=== PATIENT | female | born 1970 | race Caucasian/White ===

== ENCOUNTER 2019-01-02 11:04 | Emergency (ER) | payer OTHER ==
[2019-01-02] MEDS ORDERED: ASPIRIN 81 MG PO STA (12:00)
[2019-01-02] MEDS ORDERED: SODIUM CHLORIDE 0.9% 500 ML 500 ML IV STA (12:00)
[2019-01-02 12:18] LABS: Basophils # (A) 0.1 k/uL (0-0.2); Basophils % (A) 1 %; Eosinophils # (A) 0.1 k/uL (0-0.7); Eosinophils % (A) 1 %; HCT 40.8 % (34.0-46.0); Lymphocytes # (A) 1.5 k/uL (1.0-4.8); Lymphocytes % (A) 16 %; MCH 29.9 pg (25.0-35.0); MCHC 34.4 g/dL (31.0-37.0); Mean Platelet Volume 7.8; Monocytes # (A) 0.6 k/uL (0-1.0); Monocytes % (A) 6 %; Neutrophils # (A) 7.1 k/uL (1.3-7.7); Neutrophils % (A) 74 %; Platelet Count 325 k/uL (150-450); RBC 4.69 m/uL (3.80-5.40); RDW 14.5 % (11.5-15.5); WBC 9.6 k/uL (3.8-10.6)
--- NOTE | 2019-01-02 12:22 | ED ---
General Adult HPI - General Chief complaint: Chest Pain Stated complaint: chest pain, palpitations Time Seen by Provider: 01/02/19 11:16 Source: patient Mode of arrival: ambulatory Limitations: no limitations - History of Present Illness Initial comments: Dictation was produced using [employer] dictation software. please excuse any grammatical, word or spelling errors. Chief Complaint: 48-year-old female with past medical history of fibromyalgia, hypertension and osteoarthritis presents with chest pressure and tachycardia. History of Present Illness: Is a 48-year-old female she presents today with chest pain and tachycardia. Patient reports that her chest pain is crushing pressure-like sensation over her substernal area. Patient is also had episodes of flushing started last night and this morning. She did complain of some diaphoresis. Patient has any history of cardiac disease. Denies any radiation of symptoms to her jaw or shoulders. Patient takes metoprolol for tachycardia. She takes 35 mg twice a day. Patient has history of compartment syndrome and deep venous thrombosis. She feels much improved now. She states her symptoms are episodic. The ROS documented in this emergency department record has been reviewed and confirmed by me. Those systems with pertinent positive or negative responses loera ve been documented in the HPI. All other systems are other negative and/or noncontributory. PHYSICAL EXAM: General Impression: Alert and oriented x3, not in acute distress HEENT: Normocephalic atraumatic, extra-ocular movements intact, pupils equal and reactive to light bilaterally, mucous membranes moist. Cardiovascular: Tachycardic Chest: Lungs clear to auscultation bilaterally, no rhonchi, no wheeze, no rales Abdomen: Bowel sounds present, abdomen soft, non-tender, non-distended, no organomegaly Musculoskeletal: Pulses present and equal in all extremities, no peripheral edema Motor: no focal deficits noted Neurological: CN II-XII grossly intact, no focal motor or sensory deficits noted Skin: Intact with no visualized rashes Psych: Normal affect and mood ED course: 48-year-old female presents with a chief complaint of tachycardia and chest pain. Vital signs upon arrival shows heart of 129, so vital signs within acceptable limits. Patient's well-appearing at this time. EKG does not show any signs of ischemia or infarction. She takes metoprolol for hypertension.Lavatory evaluation obtained. CBC, coag panel, d-dimer is negative. Metabolic panel is unremarkable. O2 sat troponins negative. Urinalysis is positive for 6 white blood cells. Patient not have any urinary symptoms at this time. Checks x-ray is unremarkable. Patient was observed in emergency department for several hours. She did not have any cardiac care unit nurse events. She is an Anderson without any complications. Repeat vitals shows stable findings. Patient's heart score is low. I believe given patient's chest pain symptoms she can be discharged with outpatient workup for chest pain. Return parameters discussed. Patient understandable agreeable to disposition. Chelsea return to emergency Department with worsening chest pain, dyspnea and palpitations. she does have established care with a crusher screen repairer at the [facility]. EKG interpretation: Ventricular rate 112, sinus tachycardia,. Interval 120, care is 84, QTC 472. No PA prolongation, no QTC prolongation, no ST or T-wave changes noted.. Overall, this EKG is unremarkable - Related Data Home Medications Medication Instructions Recorded Confirmed Calcium Carbonate [Calcium] 600 mg PO DAILY 01/02/19 01/02/19 Cholecalciferol [Vitamin D3 (25 1,000 unit PO DAILY 01/02/19 01/02/19 Mcg = 1000 Iu)] DULoxetine HCL [Cymbalta] 30 mg PO DAILY 01/02/19 01/02/19 Magnesium 200 mg PO DAILY 01/02/19 01/02/19 Metoprolol Tartrate 25 mg PO BID 01/02/19 01/02/19 Multivitamins, Thera [Multivitamin 1 tab PO DAILY 01/02/19 01/02/19 (formulary)] Omeprazole [PriLOSEC] 20 mg PO BID 01/02/19 01/02/19 Allergies Allergy/AdvReac Type Severity Reaction Status Date / Time No Known Allergies Allergy Verified 01/02/19 12:12 Review of Systems ROS Statement: Those systems with pertinent positive or pertinent negative responses have been documented in the HPI. ROS Other: All systems not noted in ROS Statement are negative. Past Medical History Past Medical History: Hypertension, Osteoarthritis (OA) Additional Past Medical History / Comment(s): fibromyalgia History of Any Multi-Drug Resistant Organisms: None Reported Past Surgical History: Appendectomy, Section, Cholecystectomy, Heart Catheterization, Hysterectomy Additional Past Surgical History / Comment(s): sinus, 4 hand surgeries, tummy tuck, Past Psychological History: No Psychological Hx Reported Smoking Status: Former smoker Past Alcohol Use History: Occasional Past Drug Use History: None Reported General Exam Limitations: no limitations Course Vital Signs 01/02/19 01/02/19 01/02/19 11:09 12:37 15:00 Temperature 98 F 98.6 F Pulse Rate 129 H 82 94 Respiratory 18 18 18 Rate Blood Pressure 147/102 118/89 139/97 O2 Sat by Pulse 98 97 100 Oximetry Medical Decision Making - Lab Data Result diagrams: 01/02/19 11:31 01/02/19 11:31 Lab Results 01/02/19 01/02/19 01/02/19 Range/Units 11:31 11:31 11:31 WBC 9.6 (3.8-10.6) k/uL RBC 4.69 (3.80-5.40) m/uL Hgb 14.0 (11.4-16.0) gm/dL Hct 40.8 (34.0-46.0) % MCV 87.0 (80.0-100.0) fL MCH 29.9 (25.0-35.0) pg MCHC 34.4 (31.0-37.0) g/dL RDW 14.5 (11.5-15.5) % Plt Count 325 (150-450) k/uL Neutrophils % 74 % Lymphocytes % 16 % Monocytes % 6 % Eosinophils % 1 % Basophils % 1 % Neutrophils # 7.1 (1.3-7.7) k/uL Lymphocytes # 1.5 (1.0-4.8) k/uL Monocytes # 0.6 (0-1.0) k/uL Eosinophils # 0.1 (0-0.7) k/uL Basophils # 0.1 (0-0.2) k/uL PT 9.6 (9.0-12.0) sec INR 0.9 (<1.2) APTT 26.2 (22.0-30.0) sec D-Dimer <0.17 (<0.60) mg/L FEU Sodium 140 (137-145) mmol/L Potassium 4.4 (3.5-5.1) mmol/L Chloride 104 (98-107) mmol/L Carbon Dioxide 23 (22-30) mmol/L Anion Gap 13 mmol/L BUN 21 H (7-17) mg/dL Creatinine 0.78 (0.52-1.04) mg/dL Est GFR (CKD-EPI)AfAm >90 (>60 ml/min/1.73 sqM) Est GFR (CKD-EPI)NonAf >90 (>60 ml/min/1.73 sqM) Glucose 105 H (74-99) mg/dL Calcium 9.7 (8.4-10.2) mg/dL Magnesium 2.0 (1.6-2.3) mg/dL Total Bilirubin 0.7 (0.2-1.3) mg/dL AST 33 (14-36) U/L ALT 31 (9-52) U/L Alkaline Phosphatase 138 H (38-126) U/L Troponin I (0.000-0.034) ng/mL NT-Pro-B Natriuret Pep pg/mL Total Protein 7.8 (6.3-8.2) g/dL Albumin 4.8 (3.5-5.0) g/dL Lipase 162 (23-300) U/L Urine Color Urine Appearance (Clear) Urine pH (5.0-8.0) Ur Specific [place] (1.001-1.035) Urine Protein (Negative) Urine Glucose (UA) (Negative) Urine Ketones (Negative) Urine Blood (Negative) Urine Nitrite (Negative) Urine Bilirubin (Negative) Urine Urobilinogen (<2.0) mg/dL Ur Leukocyte Esterase (Negative) Urine RBC (0-5) /hpf Urine WBC (0-5) /hpf Ur Squamous Epith Cells (0-4) /hpf Amorphous Sediment (None) /hpf Urine Bacteria (None) /hpf Urine Mucus (None) /hpf 01/02/19 01/02/19 01/02/19 Range/Units 11:31 11:31 13:15 WBC (3.8-10.6) k/uL RBC (3.80-5.40) m/uL Hgb (11.4-16.0) gm/dL Hct (34.0-46.0) % MCV (80.0-100.0) fL MCH (25.0-35.0) pg MCHC (31.0-37.0) g/dL RDW (11.5-15.5) % Plt Count (150-450) k/uL Neutrophils % % Lymphocytes % % Monocytes % % Eosinophils % % Basophils % % Neutrophils # (1.3-7.7) k/uL Lymphocytes # (1.0-4.8) k/uL Monocytes # (0-1.0) k/uL Eosinophils # (0-0.7) k/uL Basophils # (0-0.2) k/uL PT (9.0-12.0) sec INR (<1.2) APTT (22.0-30.0) sec D-Dimer (<0.60) mg/L FEU Sodium (137-145) mmol/L Potassium (3.5-5.1) mmol/L Chloride (98-107) mmol/L Carbon Dioxide (22-30) mmol/L Anion Gap mmol/L BUN (7-17) mg/dL Creatinine (0.52-1.04) mg/dL Est GFR (CKD-EPI)AfAm (>60 ml/min/1.73 sqM) Est GFR (CKD-EPI)NonAf (>60 ml/min/1.73 sqM) Glucose (74-99) mg/dL Calcium (8.4-10.2) mg/dL Magnesium (1.6-2.3) mg/dL Total Bilirubin (0.2-1.3) mg/dL AST (14-36) U/L ALT (9-52) U/L Alkaline Phosphatase (38-126) U/L Troponin I <0.012 (0.000-0.034) ng/mL NT-Pro-B Natriuret Pep 123 pg/mL Total Protein (6.3-8.2) g/dL Albumin (3.5-5.0) g/dL Lipase (23-300) U/L Urine Color Yellow Urine Appearance Cloudy H (Clear) Urine pH 5.5 (5.0-8.0) Ur Specific [place] 1.019 (1.001-1.035) Urine Protein Trace H (Negative) Urine Glucose (UA) Negative (Negative) Urine Ketones Negative (Negative) Urine Blood Negative (Negative) Urine Nitrite Negative (Negative) Urine Bilirubin Negative (Negative) Urine Urobilinogen <2.0 (<2.0) mg/dL Ur Leukocyte Esterase Trace H (Negative) Urine RBC 1 (0-5) /hpf Urine WBC 6 H (0-5) /hpf Ur Squamous Epith Cells 1 (0-4) /hpf Amorphous Sediment Rare H (None) /hpf Urine Bacteria Occasional H (None) /hpf Urine Mucus Rare H (None) /hpf 01/02/19 Range/Units 15:08 WBC (3.8-10.6) k/uL RBC (3.80-5.40) m/uL Hgb (11.4-16.0) gm/dL Hct (34.0-46.0) % MCV (80.0-100.0) fL MCH (25.0-35.0) pg MCHC (31.0-37.0) g/dL RDW (11.5-15.5) % Plt Count (150-450) k/uL Neutrophils % % Lymphocytes % % Monocytes % % Eosinophils % % Basophils % % Neutrophils # (1.3-7.7) k/uL Lymphocytes # (1.0-4.8) k/uL Monocytes # (0-1.0) k/uL Eosinophils # (0-0.7) k/uL Basophils # (0-0.2) k/uL PT (9.0-12.0) sec INR (<1.2) APTT (22.0-30.0) sec D-Dimer (<0.60) mg/L FEU Sodium (137-145) mmol/L Potassium (3.5-5.1) mmol/L Chloride (98-107) mmol/L Carbon Dioxide (22-30) mmol/L Anion Gap mmol/L BUN (7-17) mg/dL Creatinine (0.52-1.04) mg/dL Est GFR (CKD-EPI)AfAm (>60 ml/min/1.73 sqM) Est GFR (CKD-EPI)NonAf (>60 ml/min/1.73 sqM) Glucose (74-99) mg/dL Calcium (8.4-10.2) mg/dL Magnesium (1.6-2.3) mg/dL Total Bilirubin (0.2-1.3) mg/dL AST (14-36) U/L ALT (9-52) U/L Alkaline Phosphatase (38-126) U/L Troponin I <0.012 (0.000-0.034) ng/mL NT-Pro-B Natriuret Pep pg/mL Total Protein (6.3-8.2) g/dL Albumin (3.5-5.0) g/dL Lipase (23-300) U/L Urine Color Urine Appearance (Clear) Urine pH (5.0-8.0) Ur Specific [place] (1.001-1.035) Urine Protein (Negative) Urine Glucose (UA) (Negative) Urine Ketones (Negative) Urine Blood (Negative) Urine Nitrite (Negative) Urine Bilirubin (Negative) Urine Urobilinogen (<2.0) mg/dL Ur Leukocyte Esterase (Negative) Urine RBC (0-5) /hpf Urine WBC (0-5) /hpf Ur Squamous Epith Cells (0-4) /hpf Amorphous Sediment (None) /hpf Urine Bacteria (None) /hpf Urine Mucus (None) /hpf Disposition Clinical Impression: Chest pain Disposition: HOME SELF-CARE Condition: Good Instructions (If sedation given, give patient instructions): Chest Pain (ED) Is patient prescribed a controlled substance at d/c from ED?: No Referrals: Gonzalez Johnson DO [Primary Care Provider] - 1-2 days Time of Disposition: 16:10
[2019-01-02 12:31] LABS: INR 0.9 (<1.2); Partial Thromboplastin Time 26.2 sec (22.0-30.0); Prothrombin Time 9.6 sec (9.0-12.0)
[2019-01-02 12:32] LABS: D-Dimer <0.17 mg/L FEU (<0.60)
[2019-01-02 12:33] LABS: ALT 31 U/L (9-52); AST 33 U/L (14-36); African American GFR (CKD) >90 (>60 ml/min/1.73 sqM); Albumin 4.8 g/dL (3.5-5.0); Alkaline Phosphatase 138 U/L (38-126); Anion Gap 13 mmol/L; Blood Urea Nitrogen 21 mg/dL (7-17); Calcium 9.7 mg/dL (8.4-10.2); Carbon Dioxide 23 mmol/L (22-30); Chloride 104 mmol/L (98-107); Glucose 105 mg/dL (74-99); Potassium 4.4 mmol/L (3.5-5.1); Sodium 140 mmol/L (137-145); Total Bilirubin 0.7 mg/dL (0.2-1.3); Total Protein 7.8 g/dL (6.3-8.2)
--- NOTE | 2019-01-02 12:35 | XR ---
EXAMINATION TYPE: XR chest 2V DATE OF EXAM ORDERED: 01/02/2019 HISTORY: Chest Pain. REFERENCE: None. FINDINGS: The lungs are clear. Pleural spaces are clear. Heart size is normal. IMPRESSION: NORMAL CHEST.
[2019-01-02 13:29] LABS: Amorphous Sediment,Urine Rare /hpf; Appearance,Urine Cloudy (Clear); Bacteria,Urine Occasional /hpf; Bilirubin,Urine Negative (Negative); Blood,Urine Negative (Negative); Color,Urine Yellow; Glucose,Urine (UA) Negative (Negative); Ketones,Urine Negative (Negative); Leukocyte Esterase,Urine Trace (Negative); Mucus,Urine Rare /hpf; Nitrite,Urine Negative (Negative); PH, Urine 5.5 (5.0-8.0); Protein,Urine Trace (Negative); RBC,Urine 1 /hpf (0-5); Specific Gravity,Urine 1.019 (1.001-1.035); Squamous Epithelial Cell,Urine 1 /hpf (0-4); Urobilinogen,Urine <2.0 mg/dL (<2.0)
[2019-01-02 15:01] VITALS: TEMP 98.6
[2019-01-02 16:32] VITALS: BP 126/83; PULSE 90; RESP 16
== END 2019-01-02 16:32 | disposition home or self-care (01) ==
LOC: EC 11:04
DX: R07.89 Other chest pain (principal); R00.0 Tachycardia, unspecified; R00.2 Palpitations; I10 Essential (primary) hypertension; Z79.899 Other long term (current) drug therapy; Z87.891 Personal history of nicotine dependence; Z95.5 Presence of coronary angioplasty implant and graft; Z86.718 Personal history of other venous thrombosis and embolism
CPT/HCPCS: 36415; 71046; 80053; 81001; 83690; 83735; 83880; 84484; 85025; 85379; 85610; 85730; 93005; 99285

== ENCOUNTER 2019-11-02 13:33 | Emergency (ER) | payer OTHER ==
[2019-11-02 13:39] VITALS: TEMP 99
[2019-11-02] MEDS ORDERED: SODIUM CHLORIDE 0.9% 1,000 ML IV STA (14:00)
[2019-11-02] MEDS ORDERED: KETOROLAC 30 MG/ML 1 ML VIAL IVP STA (14:00)
[2019-11-02] MEDS ORDERED: diphenhydrAMINE 50 MG/ML 1 ML VIAL IVP STA (14:00)
[2019-11-02] MEDS ORDERED: METOCLOPRAMIDE 5 MG/ML 2 ML VIAL IVP STA (14:00)
--- NOTE | 2019-11-02 14:51 | CT ---
EXAMINATION TYPE: CT brain wo con DATE OF EXAM: 11/02/2019 HISTORY: Headache CT DLP: 1099.4 mGycm. Automated Exposure Control for Dose Reduction was Utilized. TECHNIQUE: CT scan of the head is performed without contrast. COMPARISON: None. FINDINGS: There is no acute intracranial hemorrhage, midline shift, or mass effect identified. Brain parenchyma appears normal. The ventricles, sulci, and cisterns are normal in size and configuration. No extra-axial fluid collection. Bones and extracranial soft tissues are intact. The globes are gross ly symmetric. There is mucosal thickening of the right maxillary sinus and paranasal sinuses postsurg ical changes. Mastoid air cells are clear. IMPRESSION: No acute intracranial hemorrhage, midline shift, or mass effect.
[2019-11-02 15:14] VITALS: BP 118/84; RESP 16
--- NOTE | 2019-11-02 15:39 | ED ---
Headache HPI - General Chief Complaint: Headache Stated Complaint: Headache Time Seen by Provider: 11/02/19 13:44 Mode of arrival: ambulatory Limitations: no limitations - History of Present Illness Initial Comments: Patient is a 49-year-old female, with history of migraines, presenting to emergency Department with complaints of a migraine 3 days. She also admits to associated nausea and vomiting for the past 3 days as well. Patient states she does see a neurologist and can usually keep her migraines at bay. Patient states this migraine seemed to start very suddenly and seems worse than normal. Patient states she has tried her regular migraine medicines without relief. She is also tried going to the chiropractor as well as acupuncture. She states this headache even woke her up last night. Patient states she did take some Benadryl, Imitrex, Zofran approximate 4 hours prior to arrival. She states she has not been able to eat very much the last 3 days secondary to this headache. She denies any falls or trauma. She denies any new medications. She denies any blurry vision. She does admit to being light sensitive. She denies any recent fever, chills, neck pain. She has no further complaints at this time. Upon arrival to the ER, her vital signs are stable. - Related Data Home Medications Medication Instructions Recorded Confirmed Calcium Carbonate [Calcium] 600 mg PO DAILY 01/02/19 01/02/19 Cholecalciferol [Vitamin D3 (25 1,000 unit PO DAILY 01/02/19 01/02/19 Mcg = 1000 Iu)] DULoxetine HCL [Cymbalta] 30 mg PO DAILY 01/02/19 01/02/19 Magnesium 200 mg PO DAILY 01/02/19 01/02/19 Metoprolol Tartrate 25 mg PO BID 01/02/19 01/02/19 Multivitamins, Thera [Multivitamin 1 tab PO DAILY 01/02/19 01/02/19 (formulary)] Omeprazole [PriLOSEC] 20 mg PO BID 01/02/19 01/02/19 Allergies Allergy/AdvReac Type Severity Reaction Status Date / Time No Known Allergies Allergy Verified 11/02/19 13:39 Review of Systems ROS Statement: Those systems with pertinent positive or pertinent negative responses have been documented in the HPI. ROS Other: All systems not noted in ROS Statement are negative. Past Medical History Past Medical History: Hypertension, Osteoarthritis (OA) Additional Past Medical History / Comment(s): migraines, fibromyalgia History of Any Multi-Drug Resistant Organisms: None Reported Past Surgical History: Appendectomy, Section, Cholecystectomy, Heart Catheterization, Hysterectomy Additional Past Surgical History / Comment(s): sinus, 4 hand surgeries, tummy tuck, Past Psychological History: No Psychological Hx Reported Past Alcohol Use History: Occasional Past Drug Use History: None Reported General Exam - General Exam Comments Initial Comments: GENERAL: Well-appearing, well-nourished and in no acute distress, does appear uncomfortable. HEAD: Atraumatic, normocephalic. EYES: Pupils equal round and reactive to light, extraocular movements intact, sclera anicteric, conjunctiva are normal. ENT: TMs normal, nares patent, oropharynx clear without exudates. Moist mucous membranes. NECK: Normal range of motion, supple without lymphadenopathy or JVD. LUNGS: Breath sounds clear to auscultation bilaterally and equal. No wheezes rales or rhonchi. HEART: Regular rate and rhythm without murmurs, rubs or gallops. ABDOMEN: Soft, nontender, normoactive bowel sounds. No guarding, no rebound. No masses appreciated. : Deferred EXTREMITIES: Normal range of motion, no pitting or edema. No clubbing or cyanosis. Strength is 5 out of 5 upper and lower extremities bilaterally, sensation is also equal and bilateral. NEUROLOGICAL: Cranial nerves II through XII grossly intact. Normal speech, normal gait. PSYCH: Normal mood, normal affect. SKIN: Warm, Dry, normal turgor, no rashes or lesions noted. Limitations: no limitations Course Vital Signs 11/02/19 11/02/19 11/02/19 13:34 15:13 16:18 Temperature 99.0 F Pulse Rate 116 H 95 101 H Respiratory 18 16 16 Rate Blood Pressure 175/106 118/84 O2 Sat by Pulse 98 99 99 Oximetry Medical Decision Making - Medical Decision Making Patient is a 49-year-old female here for a migraine, nausea and vomiting 3 days. She does have history of migraines. This one seems to be worse than normal and lasting longer than normal. There is no falls or trauma. Her exam is unremarkable, no neuro deficits. I did CT the patient given worse than norm al headache, CT shows no acute changes. Patient was given fluids, Reglan, Toradol, Benadryl. She is reporting improvement in her symptoms and is requesting to be discharged. She'll follow up with her neurologist. Return parameters were discussed with the patient she verbalized understanding. Case discussed with Dr. Mendez. Disposition Clinical Impression: Migraine headache, Nausea & vomiting Disposition: HOME SELF-CARE Condition: Stable Instructions (If sedation given, give patient instructions): Acute Headache (ED) Additional Instructions: Please return to the Emergency Department if symptoms worsen or any other concerns. Follow-up with neurologist as needed. Is patient prescribed a controlled substance at d/c from ED?: No Referrals: Jose L Saldana MD [Primary Care Provider] - 1-2 days
[2019-11-02 16:19] VITALS: PULSE 101
== END 2019-11-02 16:19 | disposition home or self-care (01) ==
LOC: EC 13:33
DX: G43.909 Migraine, unspecified, not intractable, without status migrainosus (principal); R11.2 Nausea with vomiting, unspecified; I10 Essential (primary) hypertension; M19.90 Unspecified osteoarthritis, unspecified site; M79.7 Fibromyalgia; Z79.899 Other long term (current) drug therapy
CPT/HCPCS: 99283; 96374; 96375 ×2; 96361; 70450; J1200; J2765; J1885

== ENCOUNTER → 2022-12-04 | Outpatient (CLI) | payer OTHER ==
[2022-12-04 14:17] VITALS: BP 112/76; PULSE 64; RESP 16; TEMP 98.4
--- NOTE | 2022-12-04 14:40 | P.PAINPG ---
PQRS Measure Charge Sheet Comment: HISTORY OF PRESENT ILLNESS: 52 yr old female as a referral from the [facility] presents today w severe and chronic neck pain x 6 mo secondary to cervicogenic headache and occipital neuralgia for evaluation. Pt states pain level is provoked at 9/10 in intensity, constant, localized in the mid to lower cervical spine, sharp in character w shooting pain towards the scalp and the shoulder BL. Pain is provoked by laying supine. Pain is alleviated by medications (Motrin, Aleve, Cymbalta, Tyl, Tramadol), topicals, heat, ice, chiropractic treament semi weekly x 1 yr which she is currently in, repositioning and rest. Oswestry axial pain score at 27. PMH: OA, HTN, OA, Fibromyalgia, Migraine POTTER PSH: Appendectomy, Section, Cholecystectomy, Heart Catheterization, Hysterectomy, Tummy Tuck, Sinus Surgery, Hand Surgery x4 SH: No tobacco use, Occasional ETOH use, No illicit drug use FH: Non contributory All: See list Meds: See list REVIEW OF ORGAN SYSTEMS: CONSTITUTIONAL: No fevers or chills. No recent weight loss. NEUROLOGICAL: + numbness and tingling along the distal extremities. No seizure disorders or headaches. MUSCULOSKELETAL: + pain PSYCHIATRIC: Denies current depression or suicidal thoughts. Physical Examinations : Constitutional : Cooperative , not in acute distress . Neurologic : Cranial nerve II to XII intact. No focal neurological deficits. Psychiatric : alert & oriented x 3. Matching mood & appropriate affect. Judgment & insight intact. Musculoskeletal : Cervical Spine Motor strength in the deltoid and biceps: Normal right side. Normal Left side Motor strength biceps and the wrist extensors: Normal right side . Normal left side Motor strength in the triceps muscle: Normal right side. Normal left side Deep tendon reflexes: Normal at the biceps. Normal at Brachioradialis. Normal at triceps Vertebral body tenderness to deep palpation over C6 Cervical facet loading test: positive bilaterally Spurling test: positive bilaterally over BL C6-C7 Neck distraction test: positive bilaterally Stefani sign: positive bilaterally Lumbar spine Motor strength lower extremities ,thigh and legs 5/5 Right side , 5/5 Left side Deep tendon reflexes : Normal Knee Jerk. Normal Ankle Jerk Vertebral body tenderness over Suarez Test positive Lumbar facet Loading Test: positive Right / positive Left Range of motion of the lumbar spine Flexion 30 degrees, extension 10 degrees Straight Leg Raise test: Left/ Right positive at degree Ermelinda test: positive right / positive left. Severe tenderness over the Sacroiliac joint on the Right / Left sides Gaenslen test: positive bilaterally Seated flexion test: positive bilaterally. Sacral spine : Severe tenderness over the Sacroiliac joint: right side / left side Range of motion: Flexion of the lumbar spine <60 degrees Range of motion: Extension of the lumbar spine <20 degrees Gaenslen's Test positive David's Test positive Ermelinda test: positive right side / le ft side Thigh Thrust Test Sacral Thrust Test Imaging: MRI non contrast of the cervical spine from 10/14/22 reviewed Assessment/ Plan : Cervical DDD Recommendation of SUSANNA C6-C7 #1. May need a series of injections for optimal pain relief. Risks, benefits of procedure discussed and patient verbalized understanding. Admits to aspirin or anti- coagulant use or medical history of diabetes. Protocol for discontinuation/ continuation of medications lora procedure discussed. Minimal anesthesia provided, if clinically indicated, consisting of Versed and Fentanyl. All questions answered. I have spent greater than 30 minutes on patient care today. Dr Rosario was available by phone for the evaluation of this patient. The time was used to review the medical records including relevant urine studies and Prescription history (MAPs), review of the available imaging, evaluation and examination of the patient, coordination of care with the medical staff and if applicable referring physicians, as well as creation of the medical record PQRS Narrative: Smoking Status Former smoker Home Medications: Ambulatory Orders Calcium Carbonate [Calcium] 600 mg PO DAILY 01/02/19 Cholecalciferol [Vitamin D3 (25 Mcg = 1000 Iu)] 1,000 unit PO DAILY 01/02/19 DULoxetine HCL [Cymbalta] 30 mg PO DAILY 01/02/19 Magnesium 200 mg PO DAILY 01/02/19 Metoprolol Tartrate 25 mg PO BID 01/02/19 Multivitamins, Thera [Multivitamin (formulary)] 1 tab PO DAILY 01/02/19 Omeprazole [PriLOSEC] 20 mg PO BID 01/02/19 Controlled Substance Measures - Controlled Substance Measures Is patient prescribed a controlled substance at discharge?: No
== END ==
LOC: PNWHC3 09:03
PROVIDERS: ATTEND Specialist
DX: M50.323 Other cervical disc degeneration at C6-C7 level (principal); M54.51 Vertebrogenic low back pain; Z87.891 Personal history of nicotine dependence; M19.90 Unspecified osteoarthritis, unspecified site; I10 Essential (primary) hypertension; M79.7 Fibromyalgia; G40.909 Epilepsy, unspecified, not intractable, without status epilepticus; Z88.8 Allergy status to other drugs, medicaments and biological substances
CPT/HCPCS: 99211

== ENCOUNTER → 2022-12-17 | Day surgery (SDC) | payer OTHER ==
[~2022-12-17] MED LIST: DEXAMETHASONE SOD PHOSPHATE 10 MG/ML 1 ML VIAL ONE; IOPAMIDOL M200 10 ML VIAL ONE; LACTATED RINGERS 1,000 ML IV SCH
[2022-12-17 12:38] VITALS: RESP 16; TEMP 97.2
--- NOTE | 2022-12-17 12:55 | P.PCN ---
Date of Procedure: 12/17/22 Procedure(s) Performed: . PROCEDURE 1. Cervical epidural steroid injection under fluoroscopic guidance, C6-7 (fluoroscopy images available in the radiology department ) 2. Cervical epidurogram. PREOPERATIVE DIAGNOSIS: 1- Cervical Degenerative Disc Diseases 2-cervical spondylosis with cervical Facet arthropathy without myelopathy.4-cervical spinal stenosis POSTOPERATIVE DIAGNOSIS: : 1- Cervical Degenerative Disc Diseases , 2-cervical spondylosis with cervical Facet arthropathy without myelopathy. 4-cervical spinal stenosis ANESTHESIA: Local anesthesia with lidocaine 1% 3 ml only EBL 0 PROCEDURE INDICATION: The patient with neck pain and radiculitis unresponsive to conservative treatment consents for procedure. PROCEDURE DESCRIPTION / TECHNIQUE: The patient was seen and identified in the preoperative area. Risks, benefits, complications, including but not limited to infections ,bleeding , allergic reactions to the medications ,and not complete pain releife, and alternatives were discussed with the patient, the patient agreed to proceed with the procedure and signed the consent. Patient was taken to the OR and time out was completed. The patient was placed in the prone position on the procedure table. A pillow was placed under the patients chest to increase the cervical interlaminar space. The cervical area was prepped and draped in the usual sterile fashion. Vital signs were closely monitored during the procedure. Using anterior-posterior fluoroscopy, the C6-7 interlaminar space was identified and the skin over this site was marked and then infiltrated with 1% lidocaine subcutaneously. Subsequently, a 20-gauge 3-1/2-inch Tuohy epidural needle was inserted and advanced toward the epidural space by means of the ``hanging-drop technique and guided by AP and lateral fluoroscopy. The correct needle position in the epidural space was verified with the injection of 2 mL of the water soluble contrast dye Isovue-200 and observing an excellent epidurogram with the epidural spread of the dye, after negative aspiration for blood and CSF and in the absence of paresthesias. then, mixture containing 20 mg Dexamethasone and 2 ml of preservative-free normal saline injected and a washout of epidurogram was seen. Needle was withdrawn intact, skin was cleansed, and bandages were applied. Complications= none. Disposition= patient was placed in supine position and transferred to the recovery room area in stable condition and there was no evidence of upper or lower extremity motor or sensory deficit after the procedure patient was discharged from recovery room after discharge criteria met and home discharge instructions was given by the staff and patient will follow with the pain clinic in 2-4 weeks
[2022-12-17 13:09] VITALS: BP 113/76; PULSE 81
--- NOTE | 2022-12-17 13:37 | FL ---
Fluoroscopy History: NECK PAIN PAIN SERVICES. FL TIME 1 SEC DAP [id number]
== END ==
LOC: ORPAIN 12:10
PROVIDERS: ATTEND Specialist
DX: M50.123 Cervical disc disorder at C6-C7 level with radiculopathy (principal); M47.22 Other spondylosis with radiculopathy, cervical region; M48.02 Spinal stenosis, cervical region; Z88.5 Allergy status to narcotic agent; Z79.899 Other long term (current) drug therapy
CPT/HCPCS: 62321; J1100; Q9966

== ENCOUNTER → 2023-01-27 | Outpatient (CLI) | payer OTHER ==
[2023-01-27 13:39] VITALS: BP 109/76; PULSE 76; RESP 15; TEMP 98.2
--- NOTE | 2023-01-27 14:43 | P.PAINPG ---
PQRS Measure Charge Sheet Comment: HISTORY OF PRESENT ILLNESS: 53 yr old female presents today w severe and chronic neck pain x 10 yrs secondary to cervicogenic headache, occipital neuralgia, DDD, spondylosis and facet arthropathy without myelopathy for evaluation s/p SUSANNA C6-C7 #1. Pt states she experienced 50% pain relief x the last 5 wks s/p procedure. Pt states pain level is provoked at 3/10 in intensity, constant, localized in the mid to lower lumbar spine, sharp in character without shooting pain. Pain is provoked by laying supine. Pain is alleviated by medications, topicals, heat, ice, repositioning and rest. Interventional procedures include SUSANNA C6-C7 x1 Medications include Motrin, Aleve, Cymbalta, Tyl, Tramadol REVIEW OF ORGAN SYSTEMS: CONSTITUTIONAL: No fevers or chills. No recent weight loss. NEUROLOGICAL: + numbness and tingling along the distal extremities. No seizure disorders or headaches. MUSCULOSKELETAL: + pain PSYCHIATRIC: Denies current depression or suicidal thoughts. Physical Examinations : Constitutional : Cooperative , not in acute distress . Neurologic : Cranial nerve II to XII intact. No focal neurological deficits. Psychiatric : alert & oriented x 3. Matching mood & appropriate affect. Judgment & insight intact. Musculoskeletal : Cervical Spine Motor strength in the deltoid and biceps: Normal right side. Normal Left side Motor strength biceps and the wrist extensors: Normal right side . Normal left side Motor strength in the triceps muscle: Normal right side. Normal left side Deep tendon reflexes: Normal at the biceps. Normal at Brachioradialis. Normal at triceps Vertebral body tenderness to deep palpation over C6 Cervical facet loading test: positive bilaterally Spurling test: positive bilaterally Neck distraction test: positive bilaterally Stefani sign: positive bilaterally Lumbar spine Motor strength lower extremities ,thigh and legs 5/5 Right side , 5/5 Left side Deep tendon reflexes : Normal Knee Jerk. Normal Ankle Jerk Vertebral body tenderness over Suarez Test positive Lumbar facet Loading Test: positive Right / positive Left Range of motion of the lumbar spine Flexion 30 degrees, extension 10 degrees Straight Leg Raise test: Left/ Right positive at degree Ermelinda test: positive right / positive left. Severe tenderness over the Sacroiliac joint on the Right / Left sides Gaenslen test: positive bilaterally Seated flexion test: positive bilaterally. Sacral spine : Severe tenderness over the Sacroiliac joint: right side / left side Range of motion: Flexion of the lumbar spine <60 degrees Range of motion: Extension of the lumbar spine <20 degrees Gaenslen's Test positive David's Test positive Ermelinda test: positive right side / left side Thigh Thrust Test Sacral Thrust Test Imaging: MRI non contrast of the cervical spine from 10/14/22 reviewed Assessment/ Plan : Cervicogenic POTTER, Occipital Neuralgia, Cervical DDD, Lumbar DDD PT x 6 wks Dx M51.36. Will manage residual cervical pain and may RTC on an as needed basis. All questions answered. I have spent greater than 30 minutes on patient care today. Dr Rosario was available by phone for the evaluation of this patient. The time was used to review the medical records including relevant urine studies and Prescription history (MAPs), review of the available imaging, evaluation and examination of the patient, coordination of care with the medical staff and if applicable referring physicians, as well as creation of the medical record PQRS Narrative: Smoking Status Former smoker Hx Alcohol Use (MH) Yes: Rare Home Medications: Ambulatory Orders Metoprolol Tartrate 25 mg PO BID 01/02/19 Multivitamins, Thera [Multivitamin (formulary)] 1 tab PO DAILY 01/02/19 Atorvastatin Calcium [Lipitor] 20 mg PO DAILY 12/04/22 Cholecalciferol [Vitamin D3 (10 Mcg = 400 Iu)] 50 mcg PO DAILY 12/04/22 DULoxetine HCL [Cymbalta] 60 mg PO DAILY 12/04/22 Diclofenac Sodium Gel [Voltaren Gel] 4 gm TOPICAL BID PRN 12/04/22 Erenumab-Aooe [Aimovig Autoinjector] 140 mg SQ QMONTHLY 12/04/22 Fluticasone Nasal [place] [Flonase Nasal [place]] 2 spray EA NOSTRIL DAILY PRN 12/04/22 Lidocaine 5% Patch [Lidoderm] 1 patch TOPICAL DAILY PRN 12/04/22 Loperamide HCl [Loperamide HCl Oral Susp] 1 tsp PO DAILY PRN 12/04/22 Losartan [Cozaar] 100 mg PO DAILY 12/04/22 Omeprazole [PriLOSEC] 40 mg PO DAILY 12/04/22 Ondansetron Odt [Zofran Odt] 4 mg PO Q12HR PRN 12/04/22 SUMAtriptan succinate 6 mg SQ DIRECTED PRN MDD 12MG 12/04/22 SUMAtriptan succinate [Imitrex] 100 mg PO DIRECTED PRN MDD 200MG 12/04/22 amLODIPine [Norvasc] 5 mg PO DAILY 12/12/22 Controlled Substance Measures - Controlled Substance Measures Is patient prescribed a controlled substance at discharge?: No
== END ==
LOC: PNWHC3 12:46
PROVIDERS: ATTEND Specialist
DX: M50.322 Other cervical disc degeneration at C5-C6 level (principal); M51.36 Other intervertebral disc degeneration, lumbar region; M54.81 Occipital neuralgia; G44.86 Cervicogenic headache; Z87.891 Personal history of nicotine dependence; Z88.8 Allergy status to other drugs, medicaments and biological substances
CPT/HCPCS: 99211

== ENCOUNTER → 2023-07-07 | Outpatient (CLI) | payer OTHER ==
[2023-07-07 12:19] VITALS: BP 137/84; PULSE 75; RESP 16; TEMP 98.4
--- NOTE | 2023-07-07 13:22 | P.PAINPG ---
PQRS Measure Charge Sheet Comment: HISTORY OF PRESENT ILLNESS: A 53 yr old female presents today w severe and chronic neck pain x 10 yrs secondary to cervicogenic headache, occipital neuralgia, DDD, spondylosis and facet arthropathy without myelopathy for evaluation. Pt states pain level is provoked at 6 /10 in intensity, constant, localized in the mid to lower cervical spine, predominantly axial, sharp in character w occasional R shoulder shooting pain. Pain is provoked by laying supine. Pain is alleviated by PT x 6 wks which ended in Jun 2023, chiropractic treatments q3wks since Feb 2023 which she is currently in, massage therapy w acupuncture weekly since May 2023 which she is currently in, medications, topicals, heat, ice, repositioning and rest. Interventional procedures include SUSANNA C6-C7 x1 Medications include Motrin, Aleve, Cymbalta, Tyl, Olar 7.5/325mg, BioFreeze gel REVIEW OF ORGAN SYSTEMS: CONSTITUTIONAL: No fevers or chills. No recent weight loss. NEUROLOGICAL: + numbness and tingling along the distal extremities. No seizure disorders or headaches. MUSCULOSKELETAL: + pain PSYCHIATRIC: Denies current depression or suicidal thoughts. Physical Examinations : Constitutional : Cooperative , not in acute distress . Neurologic : Cranial nerve II to XII intact. No focal neurological deficits. Psychiatric : alert & oriented x 3. Matching mood & appropriate affect. Judgment & insight intact. Musculoskeletal : Cervical Spine Motor strength in the deltoid and biceps: Normal right side. Normal Left side Motor strength biceps and the wrist extensors: Normal right side . Normal left side Motor strength in the triceps muscle: Normal right side. Normal left side Deep tendon reflexes: Normal at the biceps. Normal at Brachioradialis. Normal at triceps Vertebral body tenderness to deep palpation over C6 Cervical facet loading test: positive R C6-C7 Spurling test: positive bilaterally Neck distraction test: positive bilaterally Stefani sign: positive bilaterally Lumbar spine Motor strength lower extremities ,thigh and legs 5/5 Right side , 5/5 Left side Deep tendon reflexes : Normal Knee Jerk. Normal Ankle Jerk Vertebral body tenderness over Suarez Test positive Lumbar facet Loading Test: positive Right / positive Left Range of motion of the lumbar spine Flexion 30 degrees, extension 10 degrees Straight Leg Raise test: Left/ Right positive at degree Ermelinda test: positive right / positive left. Severe tenderness over the Sacroiliac joint on the Right / Left sides Gaenslen test: positive bilaterally Seated flexion test: positive bilaterally. Sacral spine : Severe tenderness over the Sacroiliac joint: right side / left side Range of motion: Flexion of the lumbar spine <60 degrees Range of motion: Extension of the lumbar spine <20 degrees Gaenslen's Test positive David's Test positive Ermelinda test: positive right side / left side Thigh Thrust Test Sacral Thrust Test Imaging: MRI non contrast of the cervical spine from 10/14/22 reviewed Assessment/ Plan : Cervicogenic POTTER, Occipital Neuralgia, Cervical DDD, Lumbar DDD Recommendation of R TFESI C6-C7 #2. May need a series of injections for optimal pain relief. Risks, benefits of procedure discussed and pt verbalized understanding. Protocol for discontinuation/ continuation of medications lora procedure discussed. PT x 6 wks w focus on traction/ decompression M50.30, M51.36. All questions answered. I have spent greater than 30 minutes on patient care today. Dr Rosario was available by phone for the evaluation of this patient. The time was used to review the medical records including relevant urine studies and Prescription history (MAPs), review of the available imaging, evaluation and examination of the patient, coordination of care with the medical staff and if applicable referring physicians, as well as creation of the medical record PQRS Narrative: Smoking Status Former smoker Hx Alcohol Use (MH) Yes: Rare Home Medications: Ambulatory Orders Metoprolol Tartrate 25 mg PO BID 01/02/19 Multivitamins, Thera [Multivitamin (formulary)] 1 tab PO DAILY 01/02/19 Atorvastatin Calcium [Lipitor] 20 mg PO DAILY 12/04/22 Cholecalciferol [Vitamin D3 (10 Mcg = 400 Iu)] 50 mcg PO DAILY 12/04/22 DULoxetine HCL [Cymbalta] 60 mg PO DAILY 12/04/22 Diclofenac Sodium Gel [Voltaren Gel] 4 gm TOPICAL BID PRN 12/04/22 Erenumab-Aooe [Aimovig Autoinjector] 140 mg SQ QMONTHLY 12/04/22 Fluticasone Nasal [place] [Flonase Nasal [place]] 2 spray EA NOSTRIL DAILY PRN 12/04/22 Lidocaine 5% Patch [Lidoderm] 1 patch TOPICAL DAILY PRN 12/04/22 Loperamide HCl [Loperamide HCl Oral Susp] 1 tsp PO DAILY PRN 12/04/22 Losartan [Cozaar] 100 mg PO DAILY 12/04/22 Omeprazole [PriLOSEC] 40 mg PO DAILY 12/04/22 Ondansetron Odt [Zofran Odt] 4 mg PO Q12HR PRN 12/04/22 SUMAtriptan succinate 6 mg SQ DIRECTED PRN MDD 12MG 12/04/22 SUMAtriptan succinate [Imitrex] 100 mg PO DIRECTED PRN MDD 200MG 12/04/22 amLODIPine [Norvasc] 5 mg PO DAILY 12/12/22 Controlled Substance Measures - Controlled Substance Measures Is patient prescribed a controlled substance at discharge?: No
== END ==
LOC: PNWHC3 10:40
PROVIDERS: ATTEND Specialist
DX: M51.36 Other intervertebral disc degeneration, lumbar region (principal); M54.81 Occipital neuralgia; G44.86 Cervicogenic headache; M50.323 Other cervical disc degeneration at C6-C7 level; Z87.891 Personal history of nicotine dependence; Z88.8 Allergy status to other drugs, medicaments and biological substances
CPT/HCPCS: 99211

== ENCOUNTER 2023-07-29 13:09 | Day surgery (SDC) | payer OTHER ==
[2023-07-25 10:04] VITALS: BMI 30.4
[~2023-07-29 13:09] MED LIST changes: -DEXAMETHASONE SOD PHOSPHATE 10 MG/ML 1 ML VIAL ONE; -IOPAMIDOL M200 10 ML VIAL ONE
[2023-07-29 13:52] VITALS: RESP 16; TEMP 97.8
[2023-07-29] MEDS ORDERED: IOPAMIDOL M200 10 ML VIAL ONE (14:23)
[2023-07-29] MEDS ORDERED: DEXAMETHASONE SOD PHOSPHATE 10 MG/ML 1 ML VIAL ONE (14:23)
--- NOTE | 2023-07-29 14:33 | P.PCN ---
Date of Procedure: 07/29/23 Procedure(s) Performed: PREOPERATIVE DIAGNOSIS: 1-Cervical radiculopathy .2-cervical degenerative disc disease.3-nuchal foraminal stenosis.4-cervical spondylosis POSTOPERATIVE DIAGNOSIS: Same as preoperative diagnoses. PROCEDURE 1. Transforaminal epidural steroid injection under fluoroscopic guidance at right C6-7 level. (Fluoroscopy images stored on file in the radiology Department ) ANESTHESIA: Local with 1% lidocaine 3 ml . EBL: Minimal PROCEDURE INDICATION: The patient with severe neck pain and radiculopathy to the upper extremity , the symptoms unresponsive to conservative treatment. PROCEDURE DESCRIPTION / TECHNIQUE: The patient was seen and identified in the preoperative area. Risks, benefits, complications, and alternatives were discussed with the patient. The patient agreed to proceed with the procedure and signed the consent, and vital signs were stable. Patient was taken to the OR and time out was completed. The patient was placed in the lateral position on procedure table( right side up ) . The cervical area was prepped and draped in the usual sterile fashion. Critical pause was taken. Vital signs were closely monitored during the procedure. Using oblique fluoroscopy, the Right C6-7 level was identified, in the lateral view , the skin and deeper tissues just below was localized with 1% lidocaine. Subsequently, a 22-gauge 3.5-inch spinal needle was advanced under a tunneled view fluoroscopic guidance just underneath the foraminotomy of at the right C6-7 Under lateral fluoroscopy, the needle was then advanced to the posterior border of the interforaminal space. After negative aspiration of CSF and blood and with no paresthesias, 1 mL Isovue 200 contrast dye was injected excellent epidurogram , 2 mL of block solution containing 20 mg Dexamethasone PF was injected. Needle was removed. At the end of the procedure, skin was cleansed, and bandages were applied. COMPLICATIONS:none DISPOSITION / PLANS: The patient was placed in a supine position and transferred to the recovery area in a stable condition for observation. There was no evidence of lower extremity motor or sensory deficit after the procedure. Patient was discharged from the recovery room after meeting discharge criteria. Home discharge instructions were given to the patient by the staff. The patient was reexamined prior to discharge.
[2023-07-29 15:12] VITALS: BP 147/99; PULSE 66
--- NOTE | 2023-07-29 15:52 | FL ---
Fluoroscopy History: TRANSFORAMINAL FL time: 8.9 sec DAP: .[id number] Dr. Rosario
== END 2023-07-29 14:50 | disposition home or self-care (01) ==
LOC: ORPAIN 13:09
PROVIDERS: ATTEND Specialist
DX: M47.22 Other spondylosis with radiculopathy, cervical region (principal); M50.123 Cervical disc disorder at C6-C7 level with radiculopathy; M48.02 Spinal stenosis, cervical region
CPT/HCPCS: 64479; J1100; Q9966; 64483

== ENCOUNTER → 2023-08-13 | Outpatient (CLI) | payer OTHER ==
[2023-08-13 10:18] VITALS: BP 107/62; PULSE 92; RESP 15; TEMP 98.7
--- NOTE | 2023-08-13 14:35 | P.PAINPG ---
PQRS Measure Charge Sheet Comment: HISTORY OF PRESENT ILLNESS: A 53 yr old female presents today w severe and chronic neck pain x 10 yrs and LBP > 2 yrs secondary to lumbar DDD, cervicogenic headache, occipital neuralgia, DDD, spondylosis and facet arthropathy without myelopathy for evaluation s/p R TFESI C6-C7 #2. Pt states she experienced 70 % pain relief x 2 wks s/p procedure. Pt states pain level is provoked at 7 /10 in intensity, constant, localized in the lumbar spine, predominantly axial, sharp in character w occasional BLE shooting pain. Pain is provoked by laying supine. Pain is alleviated by PT x 6 wks which ended in Jun 2023, chiropractic treatments biweekly since Feb 2023 (cervical, lumbar) which she is currently in, massage therapy w acupuncture (lumbar) weekly since May 2023 which she is currently in, medications, topicals, heat, ice, repositioning and rest. Oswestry axial score of 15. Interventional procedures include SUSANNA C6-C7 x1m R TFESI C6-C7 x2 (Jul 2023) Medications include Motrin, Aleve, Cymbalta, Tyl, Points 7.5/325mg, BioFreeze gel, THC products REVIEW OF ORGAN SYSTEMS: CONSTITUTIONAL: No fevers or chills. No recent weight loss. NEUROLOGICAL: + numbness and tingling along the distal extremities. No seizure disorders or headaches. MUSCULOSKELETAL: + pain PSYCHIATRIC: Denies current depression or suicidal thoughts. Physical Examinations : Constitutional : Cooperative , not in acute distress . Neurologic : Cranial nerve II to XII intact. No focal neurological deficits. Psychiatric : alert & oriented x 3. Matching mood & appropriate affect. Judgment & insight intact. Musculoskeletal : Cervical Spine Motor strength in the deltoid and biceps: Normal right side. Normal Left side Motor strength biceps and the wrist extensors: Normal right side . Normal left side Motor strength in the triceps muscle: Normal right side. Normal left side Deep tendon reflexes: Normal at the biceps. Normal at Brachioradialis. Normal at triceps Vertebral body tenderness to deep palpation over C6 Cervical facet loading test: positive R C6-C7 Spurling test: positive bilaterally Neck distraction test: positive bilaterally Stefani sign: positive bilaterally Lumbar spine Motor strength lower extremities ,thigh and legs 5/5 Right side , 5/5 Left side Deep tendon reflexes : Normal Knee Jerk. Normal Ankle Jerk Vertebral body tenderness over L4 Suarez Test positive Lumbar facet Loading Test: positive Right / positive Left Range of motion of the lumbar spine Flexion 30 degrees, extension 10 degrees Straight Leg Raise test: Left/ Right positive at < 35 degrees Ermelinda test: positive right / positive left. Severe tenderness over the Sacroiliac joint on the Right / Left sides Gaenslen test: positive bilaterally Seated flexion test: positive bilaterally. Sacral spine : Severe tenderness over the Sacroiliac joint: right side / left side Range of motion: Flexion of the lumbar spine <60 degrees Range of motion: Extension of the lumbar spine <20 degrees Gaenslen's Test positive David's Test positive Ermelinda test: positive right side / left side Thigh Thrust Test Sacral Thrust Test Imaging: MRI non contrast of the cervical spine from 10/14/22 reviewed MRI non contrast of the lumbar spine from 10/14/22 reviewed Assessment/ Plan : Cervicogenic POTTER, Occipital Neuralgia, Cervical DDD, Lumbar DDD Recommendation of SUSANNA L4-L5 #1. May need a series of injections for optimal pain relief. Risk, benefits of procedure discussed and patient verbalized understand ing. All questions answered. I have spent greater than 30 minutes on patient care today. Dr Rosario was available by phone for the evaluation of this patient. The time was used to review the medical records including relevant urine studies and Prescription history (MAPs), review of the available imaging, evaluation and examination of the patient, coordination of care with the medical staff and if applicable referring physicians, as well as creation of the medical record PQRS Narrative: Smoking Status Former smoker Hx Alcohol Use (MH) Yes: Rare Home Medications: Ambulatory Orders Metoprolol Tartrate 25 mg PO BID 01/02/19 DULoxetine HCL [Cymbalta] 60 mg PO BID 12/04/22 Diclofenac Sodium Gel [Voltaren Gel] 4 gm TOPICAL BID PRN 12/04/22 Erenumab-Aooe [Aimovig Autoinjector] 140 mg SQ QMONTHLY 12/04/22 Fluticasone Nasal [place] [Flonase Nasal [place]] 2 spray EA NOSTRIL DAILY PRN 12/04/22 Lidocaine 5% Patch [Lidoderm] 1 patch TOPICAL DAILY PRN 12/04/22 Loperamide HCl [Loperamide HCl Oral Susp] 1 tsp PO DAILY PRN 12/04/22 Losartan [Cozaar] 100 mg PO QAM 12/04/22 Ondansetron Odt [Zofran Odt] 4 mg PO Q12HR PRN 12/04/22 SUMAtriptan succinate 6 mg SQ DIRECTED PRN MDD 12MG 12/04/22 SUMAtriptan succinate [Imitrex] 100 mg PO DIRECTED PRN MDD 200MG 12/04/22 Hcl-Ease 2 tab PO BID 07/18/23 [place]-Stin 1 tab PO TID 07/18/23 Zn-Zymeforte 1 tab PO QAM 07/18/23 Controlled Substance Measures - Controlled Substance Measures Is patient prescribed a controlled substance at discharge?: No
== END ==
LOC: PNWHC3 09:29
PROVIDERS: ATTEND Specialist
DX: M54.81 Occipital neuralgia (principal); G44.86 Cervicogenic headache; M51.36 Other intervertebral disc degeneration, lumbar region; M50.30 Other cervical disc degeneration, unspecified cervical region; Z88.8 Allergy status to other drugs, medicaments and biological substances; Z87.891 Personal history of nicotine dependence
CPT/HCPCS: 99211

== ENCOUNTER → 2023-08-21 | Day surgery (SDC) | payer OTHER ==
[2023-08-19 16:53] VITALS: BMI 31.1
[~2023-08-21] MED LIST changes: +IOPAMIDOL M200 10 ML VIAL ONE; +methylPREDNISolone ACETATE 80 MG/ML 1 ML VIAL ONE
[2023-08-21 09:23] VITALS: TEMP 98
--- NOTE | 2023-08-21 09:33 | P.PCN ---
Date of Procedure: 08/21/23 Procedure(s) Performed: PREOPERATIVE DIAGNOSIS: 1- Lumbar Degenerative Disc Diseases 2-Lumbar spondylosis with Facet arthropathy without myelopathy. POSTOPERATIVE DIAGNOSIS: 1-lumbar degenerative disc disease. 2-lumbar spondylosis with facet arthropathy without myelopathy. PROCEDURE 1. Lumbar epidural steroid injection under fluoroscopic guidance at the L4-5 level. (Fluoroscopy imaging was available in radiology department) 2. Lumbar epidurogram. ANESTHESIA: Lidocaine 1% 3 and then only. EBL: Minimal PROCEDURE INDICATION: The patient with low back pain and radiculitis symptoms unresponsive to conservative treatment. Fluoroscopy was used to optimize visualization of the needle placement and to maximize safety. PROCEDURE DESCRIPTION / TECHNIQUE: The patient was seen and identified in the preoperative area. Risks, benefits, complications including but not limited to infections ,bleeding ,allergic reaction to the medications ,nerve damage and not complete pain releife , and alternatives were discussed with the patient. The patient agreed to proceed with the procedure and signed the consent, and vital signs were stable. Patient was taken to the OR and time out was completed. The patient was placed in the prone position on procedure table and a pillow was placed under the ab domen to reduce lumbar lordosis. The lumbosacral area was prepped and draped in the usual sterile fashion.ere closely monitored during the procedure. Vital signs was monitered during the entire procedure. Using anterior-posterior fluoroscopy, the L4-5 interlaminar space was identified and the skin over this site was marked and then infiltrated with 1% lidocaine subcutaneously. Subsequently, a 20-gauge Tuohy epidural needle was inserted and advanced toward the epidural space using the ``Loss of resistance technique and guided by AP and lateral fluoroscopy. The correct needle position in the epidural space was verified with the injection of 2 mL of the water soluble contrast dye Isovue 200 contrast and observing an excellent epidurogram with the epidural spread of the dye, after negative aspiration for blood and CSF and in the absence of paresthesias. Again after negative aspiration, a 6 ml mixture containing 80 mg of Depo-medrol ( Preservetive Free ), and 2 ml of preservative free Normal Saline, and 2 ml of preservative free lidocaine 1% solution was injected and a washout of epidurogram was seen. Needle was withdrawn intact, skin was cleansed, and bandages were applied. COMPLICATIONS: None DISPOSITION / PLANS: The patient was placed in a supine position and transferred to the recovery area in a stable condition for observation. There was no evidence of lower extremity motor or sensory deficit after the procedure. Patient was discharged from the recovery room after meeting discharge criteria. Home discharge instructions were given to the patient by the staff. The patient was reexamined prior to discharge. The patient will schedule a follow up in the clinic in 2-4 weeks.
--- NOTE | 2023-08-21 10:07 | FL ---
EXAMINATION TYPE: FL guided pain mgmt statistic Intraoperative/procedural fluoroscopic services were provided. Total fluoroscopy time is 1.7 seconds with submitted images to PACS. Please see the operati ve/procedural note for further details. DAP: 0.00-5 0 mGym2
[2023-08-21 10:08] VITALS: BP 117/84; PULSE 68; RESP 16
== END ==
LOC: ORPAIN 08:11
PROVIDERS: ATTEND Specialist
DX: M51.16 Intervertebral disc disorders with radiculopathy, lumbar region (principal); M47.26 Other spondylosis with radiculopathy, lumbar region; Z88.9 Allergy status to unspecified drugs, medicaments and biological substances
CPT/HCPCS: 62323; Q9966; J1010

== ENCOUNTER → 2023-09-10 | Outpatient (CLI) | payer OTHER ==
[2023-09-10 12:34] VITALS: BP 128/74; PULSE 75; RESP 15; TEMP 98.1
--- NOTE | 2023-09-10 13:14 | P.PAINPG ---
PQRS Measure Charge Sheet Comment: HISTORY OF PRESENT ILLNESS: A 53 yr old female presents today w severe and chronic neck pain x 10 yrs and LBP > 2 yrs secondary to lumbar DDD, cervicogenic headache, occipital neuralgia, DDD, spondylosis and facet arthropathy without myelopathy for evaluation s/p SUSANNA L4-L5 #1. Pt states she experienced 20 % pain relief x 3 wks s/p procedure. Pt states pain level is provoked at 6 /10 in intensity, constant, localized in the lumbar spine, predominantly axial, sharp in character w occasional BLE shooting pain. Pain is provoked by laying supine. Pain is alleviated by PT x 6 wks which ended in Jun 2023, chiropractic treatments biweekly since Feb 2023 (cervical, lumbar) which she is currently in, massage therapy w acupuncture (lumbar) weekly since May 2023 which she is currently in, medications, topicals, heat, repositioning and rest. Oswestry axial score of 15. Interventional procedures include SUSANNA C6-C7 x1, R TFESI C6-C7 x2 (Jul 2023), SUSANNA L4-L5 x1 (August 2023) Medications include Motrin, Aleve, Cymbalta, Tyl, [place] 7.5/325mg, BioFreeze gel, THC products REVIEW OF ORGAN SYSTEMS: CONSTITUTIONAL: No fevers or chills. No recent weight loss. NEUROLOGICAL: + numbness and tingling along the distal extremities. No seizure disorders or headaches. MUSCULOSKELETAL: + pain PSYCHIATRIC: Denies current depression or suicidal thoughts. Physical Examinations : Constitutional : Cooperative , not in acute distress . Neurologic : Cranial nerve II to XII intact. No focal neurological deficits. Psychiatric : alert & oriented x 3. Matching mood & appropriate affect. Judgment & insight intact. Musculoskeletal : Cervical Spine Motor strength in the deltoid and biceps: Normal right side. Normal Left side Motor strength biceps and the wrist extensors: Normal right side . Normal left side Motor strength in the triceps muscle: Normal right side. Normal left side Deep tendon reflexes: Normal at the biceps. Normal at Brachioradialis. Normal at triceps Vertebral body tenderness to deep palpation over C6 Cervical facet loading test: positive R C6-C7 Spurling test: positive bilaterally Neck distraction test: positive bilaterally Stefani sign: positive bilaterally Lumbar spine Motor strength lower extremities ,thigh and legs 5/5 Right side , 5/5 Left side Deep tendon reflexes : Normal Knee Jerk. Normal Ankle Jerk Vertebral body tenderness Suarez Test positive Lumbar facet Loading Test: positive Right / positive Left L4-L5, L5-S1 Range of motion of the lumbar spine Flexion 30 degrees, extension 10 degrees Straight Leg Raise test: Left/ Right positive at < 35 degrees Ermelinda test: positive right / positive left. Severe tenderness over the Sacroiliac joint on the Right / Left sides Gaenslen test: positive bilaterally Seated flexion test: positive bilaterally. Sacral spine : Severe tenderness over the Sacroiliac joint: right side / left side Range of motion: Flexion of the lumbar spine <60 degrees Range of motion: Extension of the lumbar spine <20 degrees Gaenslen's Test positive David's Test positive Ermelinda test: positive right side / left side Thigh Thrust Test Sacral Thrust Test Imaging: MRI non contrast of the cervical spine from 10/14/22 reviewed MRI non contrast of the lumbar spine from 10/14/22 reviewed Assessment/ Plan : Cervicogenic POTTER, Occipital Neuralgia, Cervical DDD, Lumbar DDD Recommendation of BL MBB L3-L5 #1. May need a series of injections, up until RFA, for optimal pain relief. Risk, benefits of procedure discussed and patient verbalized understanding. All questions answered. I have spent greater than 30 minutes on patient care today. Dr Rosario was available by phone for the evaluation of this patient. The time was used to review the medical records including relevant urine studies and Prescription history (MAPs), review of the available imaging, evaluation and examination of the patient, coordination of care with the medical staff and if applicable referring physicians, as well as creation of the medical record PQRS Narrative: Smoking Status Former smoker Hx Alcohol Use (MH) Yes: Rare Home Medications: Ambulatory Orders Metoprolol Tartrate 25 mg PO BID 01/02/19 DULoxetine HCL [Cymbalta] 60 mg PO BID 12/04/22 Diclofenac Sodium Gel [Voltaren Gel] 4 gm TOPICAL BID PRN 12/04/22 Erenumab-Aooe [Aimovig Autoinjector] 140 mg SQ QMONTHLY 12/04/22 Fluticasone Nasal [place] [Flonase Nasal [place]] 2 spray EA NOSTRIL DAILY PRN 12/04/22 Lidocaine 5% Patch [Lidoderm] 1 patch TOPICAL TID PRN 12/04/22 Loperamide HCl [Loperamide HCl Oral Susp] 1 tsp PO DAILY PRN 12/04/22 Losartan [Cozaar] 100 mg PO QAM 12/04/22 Ondansetron Odt [Zofran Odt] 4 mg PO Q12HR PRN 12/04/22 SUMAtriptan succinate 6 mg SQ DIRECTED PRN MDD 12MG 12/04/22 SUMAtriptan succinate [Imitrex] 100 mg PO DIRECTED PRN MDD 200MG 12/04/22 Hcl-Ease 2 tab PO BID 07/18/23 [place]-Stin 1 tab PO TID 07/18/23 Zn-Zymeforte 1 tab PO QAM 07/18/23 Iosol 6 drops PO BID 08/19/23 Controlled Substance Measures - Controlled Substance Measures Is patient prescribed a controlled substance at discharge?: No
== END ==
LOC: PNWHC3 11:23
PROVIDERS: ATTEND Specialist
DX: M51.37 Other intervertebral disc degeneration, lumbosacral region (principal); M50.30 Other cervical disc degeneration, unspecified cervical region; G44.86 Cervicogenic headache; M54.81 Occipital neuralgia; Z87.891 Personal history of nicotine dependence; Z88.8 Allergy status to other drugs, medicaments and biological substances
CPT/HCPCS: 99211

== ENCOUNTER 2023-09-26 09:24 | Day surgery (SDC) | payer OTHER ==
[2023-09-26 09:46] VITALS: TEMP 97.3
[2023-09-26] MEDS: LACTATED RINGERS 1,000 ML IV SCH (09:55)
[2023-09-26] MEDS: IV FLUID CONTINUATION 1,000 ML IV ONE (09:56)
[2023-09-26] MEDS ORDERED: MIDAZOLAM 2 MG/2 ML VIAL ONE (10:15)
[2023-09-26] MEDS ORDERED: ROPIVACAINE 5MG/ML 20ML VIAL ONE (10:15)
[2023-09-26] MEDS ORDERED: fentaNYL (PF) 50 MCG/ML 2 ML AMP ONE (10:15)
--- NOTE | 2023-09-26 10:26 | P.PCN ---
Date of Procedure: 09/26/23 Procedure(s) Performed: PREOPERATIVE DIAGNOSIS : 1- Lumbar spondylosis with Facet Arthropathy without myelopathy . 2- Lumber degenerative disc disease POSTOPERATIVE DIAGNOSIS: 1- Lumbar spondylosis with Facet Arthropathy without myelopathy . 2- Lumber degenerative disc disease PROCEDURE: Diagnostic bilateral L3 , L4 , and L5 medial branch block under fluoroscopy guidance(fluoroscopy images available in the radiology Department ) ( To target the facet joint between Bilateral L4-5 , and L5- S1 )# 1St ANESTHESIA: moderate sedation with intravenous Versed 2 mg and Fentanyl 100 mcg. (Sedation start 10:15,ended at 10:24) EBL: Minimal COMPLICATION: None PROCEDURE INDICATION: Chronic low back pain secondary to Facet arthropathy unresponsive to conservative treatment. PROCEDURE DESCRIPTION: the patient was seen and identified in the preop holding area , risks and benefits and possible complications of the procedure and alternative were discussed with the patient, and the patient agreed to proceed with the procedure and signed the consent and vital signs monitored during the procedure and fluoroscopy was used to maximize the benefit and accuracy of the needle placement, and sedation was given to decrease patient anxiety, patient was taken to the procedure room and placed in prone position vital signs monitored in the back prepped with chlorhexidine X3 then under strict sterile technique using a right oblique fluoroscopy ,the junction of the transverse process and the superior articulating process of the right L3 , L4 , and L5 vertebra which corresponding to the fluoroscopy image of the eye of the Conrad dog on the block side for the medial branches and subsequently , after local infiltration of skin and subcu tissuies with Ropivacaine 0.5 % , one mL at each level ,then 22-gauge Quincke-type needles , 3 needle was used , each one of them placed at the junction of the base of the transverse process and the superior articular process at the appropriate level, and the needle was advanced until the periosteum contacted, needle placement confirmed with AP oblique and lateral view and after appropriate needle placement confirmed, and after negative aspiration for heme and CSF and there was no paresthesia 1-1/2 mL of Ropivacaine 0.5% , then half mL injected at each level after negative aspiration the needle subsequently removed and the same procedure repeated for the left side at left side at L3 , L4 and L5 levels. At the end of the procedure and the needles removed and a bandage applied after the skin was cleaned the cleaning solution patient taken to recovery room in stable condition and monitors in the recovery room for 20-30 minutes and discharged home in stable condition after discharge criteria met and patient will follow up with the pain clinic in 2-4 weeks
[2023-09-26] MEDS: LACTATED RINGERS 1,000 ML IV ONE (10:30)
[2023-09-26 10:48] VITALS: BP 147/87; PULSE 85; RESP 17
--- NOTE | 2023-09-26 11:37 | FL ---
EXAMINATION TYPE: FL guided pain mgmt statistic Intraoperative/procedural fluoroscopic services were provided. Total fluoroscopy time is 7.7 seconds with a total of 4 submitted images to PACS. Please se e the operative/procedural note for further details. DAP: [id number] mGym2
== END 2023-09-26 11:00 | disposition home or self-care (01) ==
LOC: ORPAIN 09:24
PROVIDERS: ATTEND Specialist
DX: M47.816 Spondylosis without myelopathy or radiculopathy, lumbar region (principal); G89.29 Other chronic pain; M51.36 Other intervertebral disc degeneration, lumbar region; Z88.8 Allergy status to other drugs, medicaments and biological substances
CPT/HCPCS: 64493; 64494 ×2; J2250; J3010; J2795; 99152

== ENCOUNTER → 2023-10-16 | Outpatient (CLI) | payer OTHER ==
[2023-10-16 09:05] VITALS: BP 149/98; PULSE 75; RESP 16; TEMP 96.9
--- NOTE | 2023-10-16 14:46 | P.PAINPG ---
PQRS Measure Charge Sheet Comment: HISTORY OF PRESENT ILLNESS: A 53 yr old female presents today w severe and chronic neck pain x 10 yrs and LBP > 2 yrs secondary to lumbar DDD, cervicogenic headache, occipital neuralgia, DDD, spondylosis and facet arthropathy without myelopathy for evaluation s/p BL MBB L3-L5 #1. Pt states she experienced 80 % pain relief x 2 hrs s/p procedure. Pt states pain level is provoked at 6 /10 in intensity, constant, localized in the lumbar spine, predominantly axial, sharp in character w occasional BLE shooting pain. Pain is provoked by laying supine. Pain is alleviated by PT x 6 wks which ended in Jun 2023, chiropractic treatments biweekly since Feb 2023 (cervical, lumbar) which she is currently in, massage therapy w acupuncture (lumbar) weekly since May 2023 which she is currently in, medications, topicals, heat, repositioning and rest. Oswestry axial score of 15. Interventional procedures include SUSANNA C6-C7 x1, R TFESI C6-C7 x2 (Jul 2023), SUSANNA L4-L5 x1 (August 2023), BL MBB L3-L5 x1 Medications include Motrin, Aleve, Cymbalta, Tyl, [place] 7.5/325mg, BioFreeze gel, THC products REVIEW OF ORGAN SYSTEMS: CONSTITUTIONAL: No fevers or chills. No recent weight loss. NEUROLOGICAL: + numbness and tingling along the distal extremities. No seizure disorders or headaches. MUSCULOSKELETAL: + pain PSYCHIATRIC: Denies current depression or suicidal thoughts. Physical Examinations : Constitutional : Cooperative , not in acute distress . Neurologic : Cranial nerve II to XII intact. No focal neurological deficits. Psychiatric : alert & oriented x 3. Matching mood & appropriate affect. Judgment & insight intact. Musculoskeletal : Cervical Spine Motor strength in the deltoid and biceps: Normal right side. Normal Left side Motor strength biceps and the wrist extensors: Normal right side . Normal left side Motor strength in the triceps muscle: Normal right side. Normal left side Deep tendon reflexes: Normal at the biceps. Normal at Brachioradialis. Normal at triceps Vertebral body tenderness to deep palpation over C6 Cervical facet loading test: positive R C6-C7 Spurling test: positive bilaterally Neck distraction test: positive bilaterally Stefani sign: positive bilaterally Lumbar spine Motor strength lower extremities ,thigh and legs 5/5 Right side , 5/5 Left side Deep tendon reflexes : Normal Knee Jerk. Normal Ankle Jerk Vertebral body tenderness Suarez Test positive Lumbar facet Loading Test: positive Right / positive Left L4-L5, L5-S1 Range of motion of the lumbar spine Flexion 30 degrees, extension 10 degrees Straight Leg Raise test: Left/ Right positive at < 35 degrees Ermelinda test: positive right / positive left. Severe tenderness over the Sacroiliac joint on the Right / Left sides Gaenslen test: positive bilaterally Seated flexion test: positive bilaterally. Sacral spine : Severe tenderness over the Sacroiliac joint: right side / left side Range of motion: Flexion of the lumbar spine <60 degrees Range of motion: Extension of the lumbar spine <20 degrees Gaenslen's Test positive David's Test positive Ermelinda test: positive right side / left side Thigh Thrust Test Sacral Thrust Test Imaging: MRI non contrast of the cervical spine from 10/14/22 reviewed MRI non contrast of the lumbar spine from 10/14/22 reviewed Assessment/ Plan : Cervicogenic POTTER, Occipital Neuralgia, Cervical DDD, Lumbar DDD Recommendation of BL MBB L3-L5 #2. May need a series of injections, up until RFA, for optimal pain relief. Risk, benefits of procedure discussed and patient verbalized understanding. All questions answered. I have spent greater than 30 minutes on patient care today. Dr Rosario was available by phone for the evaluation of this patient. The time was used to review the medical records including relevant urine studies and Prescription history (MAPs), review of the available imaging, evaluation and examination of the patient, coordination of care with the medical staff and if applicable referring physicians, as well as creation of the medical record PQRS Narrative: Smoking Status Former smoker Hx Alcohol Use (MH) Yes: Rare Home Medications: Ambulatory Orders Metoprolol Tartrate 25 mg PO BID 01/02/19 DULoxetine HCL [Cymbalta] 60 mg PO BID 12/04/22 Diclofenac Sodium Gel [Voltaren Gel] 4 gm TOPICAL BID PRN 12/04/22 Erenumab-Aooe [Aimovig Autoinjector] 140 mg SQ QMONTHLY 12/04/22 Fluticasone Nasal [place] [Flonase Nasal [place]] 2 spray EA NOSTRIL DAILY PRN 12/04/22 Lidocaine 5% Patch [Lidoderm] 1 patch TOPICAL TID PRN 12/04/22 Loperamide HCl [Loperamide HCl Oral Susp] 1 tsp PO DAILY PRN 12/04/22 Losartan [Cozaar] 100 mg PO QAM 12/04/22 Ondansetron Odt [Zofran Odt] 4 mg PO Q12HR PRN 12/04/22 SUMAtriptan succinate 6 mg SQ DIRECTED PRN MDD 12MG 12/04/22 SUMAtriptan succinate [Imitrex] 100 mg PO DIRECTED PRN MDD 200MG 12/04/22 Hcl-Ease 2 tab PO BID 07/18/23 [place]-Stin 1 tab PO TID 07/18/23 Zn-Zymeforte 1 tab PO QAM 07/18/23 Iosol 9 drops PO BID 08/19/23 Naproxen Sodium [Aleve] 220 mg PO BID 09/24/23 Controlled Substance Measures - Controlled Substance Measures Is patient prescribed a controlled substance at discharge?: No
== END ==
LOC: PNWHC3 08:48
PROVIDERS: ATTEND Specialist
DX: M54.81 Occipital neuralgia (principal); G44.86 Cervicogenic headache; M51.37 Other intervertebral disc degeneration, lumbosacral region; M50.323 Other cervical disc degeneration at C6-C7 level; Z87.891 Personal history of nicotine dependence; Z88.8 Allergy status to other drugs, medicaments and biological substances
CPT/HCPCS: 99211

== ENCOUNTER 2023-11-11 06:53 | Day surgery (SDC) | payer OTHER ==
[2023-11-10 09:40] VITALS: BMI 29.7
[2023-11-11] MEDS: IV FLUID CONTINUATION 1,000 ML IV ONE (07:11)
[2023-11-11] MEDS: LACTATED RINGERS 1,000 ML IV SCH (07:17)
[2023-11-11 07:24] VITALS: TEMP 98
[2023-11-11] MEDS ORDERED: ROPIVACAINE 5MG/ML 20ML VIAL ONE (07:35)
[2023-11-11] MEDS ORDERED: MIDAZOLAM 2 MG/2 ML VIAL ONE (07:35)
--- NOTE | 2023-11-11 07:48 | P.PCN ---
Date of Procedure: 11/11/23 Description of Procedure: Procedure: BILATERAL L4-5, L5-S1 Diagnosis: Lumbar spondylosis without myelopathy ANESTHESIA: Patient re-evaluated immediately prior to sedation Medication Administered by: Nurse Sedation Type: Moderate sedation Sedation Supervision start time: 734 Sedation Supervision end time: 745 EBL: Minimal Imaging: Fluoroscopy was used, images where saved to the medical record The patient was seen and examined in the [facility]. Procedure risks and benefits were fully reviewed with the patient. The patient understands this is diagnostic if local only is used, as will be the case today. The goal of the procedure is to inject medication onto the medial branch or small nerves that innervate the facet joints. In this way, we can hopefully identify which of these joints, if any, may be contributing to their pain. Informed consent for procedure was obtained. The patient was taken into the office fluoroscopy procedure room and placed prone on the table. A pillow was placed under the abdomen to reduce lumbar lordosis. Vital signs were closely monitored during the procedure. The skin over the area was prepped with Betadine X 3 and draped in usual sterile manner. Sterile technique was observed throughout procedure. Under biplanar fluoroscopic guidance, the target injection area of the L4, L5, Sacral Ala were targeted. A 25 gauge 3 1/2 inch spinal needle was then placed at the most medial and superior aspect of the transverse process near the "eye of the Conrad dog". Aspiration for blood was negative. 1 cc of 0.5% Ropivacaine was injected into the targeted areas separately. [place] were withdrawn intact. No complications were noted during the procedure. The patient tolerated the procedure well. The patient was placed in supine position and transferred to the recovery area for observation and remained stable until discharged home. Home discharge instructions were given to the patient by the staff. The patient will schedule a follow up as directed.
[2023-11-11] MEDS: IV FLUID CONTINUATION 800 ML IV ONE (07:50)
[2023-11-11 08:09] VITALS: BP 116/75; PULSE 60; RESP 18
--- NOTE | 2023-11-11 08:57 | FL ---
Fluoroscopy History: M47.816 LUMBAR SPONDYLOSIS Lumbar Spondylosis Dr [place] Fl time- 10.4 sec Dap- 0.1942 mGym2
== END 2023-11-11 08:30 | disposition home or self-care (01) ==
LOC: ORPAIN 06:53
PROVIDERS: ATTEND Hospitalist
DX: M47.816 Spondylosis without myelopathy or radiculopathy, lumbar region (principal); Z90.710 Acquired absence of both cervix and uterus; Z88.8 Allergy status to other drugs, medicaments and biological substances
CPT/HCPCS: 64493; 64494 ×2; 99152; J2250; J2795

== ENCOUNTER → 2023-11-24 | Outpatient (CLI) | payer OTHER | LOC: PNWHC3 08:45 | PROVIDERS: ATTEND Specialist | DX: M47.816 Spondylosis without myelopathy or radiculopathy, lumbar region | CPT/HCPCS: 99211 ==

== ENCOUNTER 2023-12-05 09:56 | Day surgery (SDC) | payer OTHER ==
[2023-12-05] MEDS ORDERED: LACTATED RINGERS 1,000 ML BAG ONE (10:51)
[2023-12-05] MEDS ORDERED: ROPIVACAINE 5MG/ML 20ML VIAL ONE (11:34)
[2023-12-05] MEDS ORDERED: MIDAZOLAM 2 MG/2 ML VIAL ONE (11:34)
[2023-12-05] MEDS ORDERED: methylPREDNISolone ACETATE 40 MG/ML 1 ML VIAL ONE (11:34)
[2023-12-05] MEDS ORDERED: fentaNYL (PF) 50 MCG/ML 2 ML AMP ONE (11:34)
[2023-12-05] MEDS ORDERED: ONDANSETRON 4 MG/2 ML VIAL ONE (12:05)
== END 2023-12-05 12:30 ==
LOC: ORPAIN 09:56
PROVIDERS: ATTEND Specialist
DX: M54.81 Occipital neuralgia (principal); Z88.8 Allergy status to other drugs, medicaments and biological substances
CPT/HCPCS: 64405

== ENCOUNTER → 2023-12-25 | Outpatient (CLI) | payer OTHER ==
[2023-12-25 09:19] VITALS: BP 127/87; PULSE 80; RESP 16; TEMP 97.8
--- NOTE | 2023-12-25 14:11 | P.PAINPG ---
PQRS Measure Charge Sheet Comment: HISTORY OF PRESENT ILLNESS: A 53 yr old female presents today w severe and chronic neck pain x 10 yrs and LBP > 2 yrs secondary to lumbar DDD, cervicogenic headache, occipital neuralgia, DDD, spondylosis and facet arthropathy without myelopathy for evaluation s/p BL JAYSON injections. Pt states she experienced >50 % pain relief x 3 wks s/p procedure. Pt states pain level is provoked at 6 /10 in intensity, constant, localized in the upper cervical spine, predominantly axial, sharp in character w occasional shooting pain towards the scalp. Pain is provoked by laying supine. Pain is alleviated by PT x 6 wks which ended in Jun 2023 (lumbar), chiropractic treatments biweekly since Feb 2023 (cervical, lumbar) which she is currently in, massage therapy w acupuncture (lumbar) weekly since May 2023 which she is currently in, medications, topicals, heat, repositioning and rest. Interventional procedures include SUSANNA C6-C7 x1, R TFESI C6-C7 x2 (Jul 2023), SUSANNA L4-L5 x1 (August 2023), BL MBB L3-L5 x2, BL JAYSON x1 (Nov 2023) Medications include Motrin, Aleve, Cymbalta, Tyl, [place] 7.5/325mg, BioFreeze gel, THC products REVIEW OF ORGAN SYSTEMS: CONSTITUTIONAL: No fevers or chills. No recent weight loss. NEUROLOGICAL: + numbness and tingling along the distal extremities. No seizure disorders or headaches. MUSCULOSKELETAL: + pain PSYCHIATRIC: Denies current depression or suicidal thoughts. Physical Examinations : Constitutional : Cooperative , not in acute distress . Neurologic : Cranial nerve II to XII intact. No focal neurological deficits. Psychiatric : alert & oriented x 3. Matching mood & appropriate affect. Judgment & insight intact. Musculoskeletal : Cervical Spine +BL JAYSON TTP Motor strength in the deltoid and biceps: Normal right side. Normal Left side Motor strength biceps and the wrist extensors: Normal right side . Normal left side Motor strength in the triceps muscle: Normal right side. Normal left side Deep tendon reflexes: Normal at the bi ceps. Normal at Brachioradialis. Normal at triceps Vertebral body tenderness to deep palpation over C6 Cervical facet loading test: positive R C6-C7 Spurling test: positive bilaterally Neck distraction test: positive bilaterally Stefani sign: positive bilaterally Lumbar spine Motor strength lower extremities ,thigh and legs 5/5 Right side , 5/5 Left side Deep tendon reflexes : Normal Knee Jerk. Normal Ankle Jerk Vertebral body tenderness Suarez Test positive Lumbar facet Loading Test: positive Right / positive Left L4-L5, L5-S1 Range of motion of the lumbar spine Flexion 30 degrees, extension 10 degrees Straight Leg Raise test: Left/ Right positive at < 35 degrees Ermelinda test: positive right / positive left. Severe tenderness over the Sacroiliac joint on the Right / Left sides Gaenslen test: positive bilaterally Seated flexion test: positive bilaterally. Sacral spine : Severe tenderness over the Sacroiliac joint: right side / left side Range of motion: Flexion of the lumbar spine <60 degrees Range of motion: Extension of the lumbar spine <20 degrees Gaenslen's Test positive David's Test positive Ermelinda test: positive right side / left side Thigh Thrust Test Sacral Thrust Test Imaging: MRI non contrast of the cervical spine from 10/14/22 reviewed MRI non contrast of the lumbar spine from 10/14/22 reviewed Assessment/ Plan : Cervicogenic POTTER, Occipital Neuralgia, Cervical DDD, Lumbar DDD Recommendation of BL JAYSON #2. Risk, benefits of procedure discussed and patient verbalized understanding. Protocol for discontinuation/ continuation of medications lora procedure discussed. Minimal anesthesia including Fentanyl and Versed if clinically indicated. All questions answered. I have spent greater than 30 minutes on patient care today. Dr Rosario was available by phone for the evaluation of this patient. The time was used to review the medical records including relevant urine studies and Prescription history (MAPs), review of the available imaging, evaluation and examination of the patient, coordination of care with the medical staff and if applicable referring physicians, as well as creation of the medical record PQRS Narrative: Smoking Status Former smoker Hx Alcohol Use (MH) Yes: Rare Home Medications: Ambulatory Orders Metoprolol Tartrate 25 mg PO BID 01/02/19 DULoxetine HCL [Cymbalta] 60 mg PO BID 12/04/22 Diclofenac Sodium Gel [Voltaren Gel] 4 gm TOPICAL BID PRN 12/04/22 Erenumab-Aooe [Aimovig Autoinjector] 140 mg SQ QMONTHLY 12/04/22 Fluticasone Nasal [place] [Flonase Nasal [place]] 2 spray EA NOSTRIL DAILY PRN Lidocaine 5% Patch [Lidoderm] 1 patch TOPICAL TID PRN 12/04/22 Loperamide HCl [Loperamide HCl Oral Susp] 1 tsp PO DAILY PRN 12/04/22 Losartan [Cozaar] 100 mg PO QAM 12/04/22 Ondansetron Odt [Zofran Odt] 4 mg PO Q12HR PRN 12/04/22 SUMAtriptan succinate 6 mg SQ DIRECTED PRN MDD 12MG 12/04/22 SUMAtriptan succinate [Imitrex] 100 mg PO DIRECTED PRN MDD 200MG 12/04/22 Hcl-Ease 2 tab PO BID 07/18/23 [place]-Stin 1 tab PO TID 07/18/23 Zn-Zymeforte 1 tab PO QAM 07/18/23 Iosol 9 drops PO BID 08/19/23 Naproxen Sodium [Aleve] 220 mg PO BID 09/24/23 Controlled Substance Measures - Controlled Substance Measures Is patient prescribed a controlled substance at discharge?: No
== END ==
LOC: PNWHC3 09:02
PROVIDERS: ATTEND Specialist
DX: G44.86 Cervicogenic headache (principal); M54.81 Occipital neuralgia; M50.30 Other cervical disc degeneration, unspecified cervical region; M51.36 Other intervertebral disc degeneration, lumbar region; Z87.891 Personal history of nicotine dependence; Z88.8 Allergy status to other drugs, medicaments and biological substances
CPT/HCPCS: 99211

== ENCOUNTER 2024-01-06 07:07 | Day surgery (SDC) | payer OTHER ==
[2024-01-02 13:01] VITALS: BMI 29.0
[2024-01-06 08:34] VITALS: TEMP 97.5
[2024-01-06] MEDS: LACTATED RINGERS 1,000 ML IV SCH (08:41)
[2024-01-06] MEDS: LACTATED RINGERS 1,000 ML IV ONE (08:42)
[2024-01-06] MEDS ORDERED: MIDAZOLAM 2 MG/2 ML VIAL ONE (09:06)
[2024-01-06] MEDS ORDERED: ROPIVACAINE 5MG/ML 20ML VIAL ONE (09:06)
[2024-01-06] MEDS ORDERED: fentaNYL (PF) 50 MCG/ML 2 ML AMP ONE (09:06)
[2024-01-06] MEDS ORDERED: DEXAMETHASONE SOD PHOSPHATE 10 MG/ML 1 ML VIAL ONE (09:06)
--- NOTE | 2024-01-06 09:18 | P.PCN ---
Date of Procedure: 01/06/24 Surgeon: Ever Buckley Pathology: none sent Condition: stable Disposition: PACU Description of Procedure: Pre-operative diagnosis: 1- occipital neuralgia Post Operative Diagnosis 1- occipital neuralgia Procedure: 1- B/L greater occipital nerve block with ultrasound guidance ANESTHESIA: Local with Lidocaine 1 % and moderate conscious sedation with 2 mg of Versed and 100 mcg of Fentanyl EBL: Minimal sedation time: 9:069:16 PROCEDURE INDICATION: The patient with neck pain and headache secondary to occipital neuralgea unresponsive to conservative treatments. PROCEDURE DESCRIPTION / TECHNIQUE: The patient was seen and identified in the preoperative area. Risks, benefits, complications, and alternatives were discussed with the patient, the patient agreed to proceed with the procedure and signed the consent. Vital signs remained stable throughout the procedure. Patient was taken to the OR and time out was completed. The patient was placed in the prone position on the procedure table. . The cervical area and right occiptial area were prepped with chloraprep. Critical pause was taken. Vital signs were closely monitored during the procedure. The the occipital exuberance and superior nuchal line were identified on the right side of the occiput. The greater occipital nerve location was estimated to be medial to the occipital artery and position of the artery was covered by using ultrasound. I used 25-gauge 1-1/2 inch needle to go through the skin and infiltrate 2.5 MLS of a solution made up of 4 MLS Ropivacaine 0.5% +10 mg of Decadron. The procedure was repeated in the same manner on the left side. Patient tolerated procedure well.
[2024-01-06] MEDS: IV FLUID CONTINUATION 1,000 ML IV ONE (09:26)
[2024-01-06 09:54] VITALS: BP 145/89; PULSE 61; RESP 16
== END 2024-01-06 10:04 | disposition home or self-care (01) ==
LOC: ORPAIN 07:07
PROVIDERS: ATTEND Anesthesiology
DX: M54.81 Occipital neuralgia
CPT/HCPCS: 64405; 99152

== ENCOUNTER → 2024-01-21 | Outpatient (CLI) | payer OTHER ==
[2024-01-21 09:22] VITALS: BP 163/96; PULSE 93; RESP 18; TEMP 98
--- NOTE | 2024-01-21 14:36 | P.PAINPG ---
PQRS Measure Charge Sheet Comment: HISTORY OF PRESENT ILLNESS: A 53 yr old female presents today w severe and chronic neck pain x 10 yrs and LBP > 2 yrs secondary to cervicogenic headache, occipital neuralgia, radiculopathy, spondylosis and facet arthropathy without myelopathy for evaluation s/p BL JAYSON injections #2. Pt states she experienced 60 % pain relief x 3 wks s/p procedure. Pt states pain level is provoked at 8 /10 in intensity, constant, localized in the lower lumbar sine, predominantly axial, sharp in character without shooting pain. Pain is provoked by laying supine. Pain is alleviated by PT x 6 wks which ended in Jun 2023 (lumbar), chiropractic treatments biweekly since Feb 2023 (cervical, lumbar) which she is currently in, massage therapy w acupuncture (lumbar) weekly since May 2023 which she is currently in, medications, topicals, heat, repositioning and rest. Interventional procedures include SUSANNA C6-C7 x1, R TFESI C6-C7 x2 (Jul 2023), SUSANNA L4-L5 x1 (August 2023), BL MBB L3-L5 x2, BL JASYON x2 (Nov 2023, Dec 2023) Medications include Motrin, Aleve, Cymbalta, Tyl, [place] 7.5/325mg, BioFreeze gel, THC products REVIEW OF ORGAN SYSTEMS: CONSTITUTIONAL: No fevers or chills. No recent weight loss. NEUROLOGICAL: + numbness and tingling along the distal extremities. No seizure disorders or headaches. MUSCULOSKELETAL: + pain PSYCHIATRIC: Denies current depression or suicidal thoughts. Physical Examinations : Constitutional : Cooperative , not in acute distress . Neurologic : Cranial nerve II to XII intact. No focal neurological deficits. Psychiatric : alert & oriented x 3. Matching mood & appropriate affect. Judgment & insight intact. Musculoskeletal : Cervical Spine +BL JAYSON TTP Motor strength in the deltoid and biceps: Normal right side. Normal Left side Motor strength biceps and the wrist extensors: Normal right side . Normal left side Motor strength in the triceps muscle: Normal right side. Normal left side Deep tendon reflexes: Normal at the biceps. Normal at Brachioradialis. Normal at triceps Vertebral body tenderness to deep palpation over C6 Cervical facet loading test: positive R C6-C7 Spurling test: positive bilaterally Neck distraction test: positive bilaterally Stefani sign: positive bilaterally Lumbar spine Motor strength lower extremities ,thigh and legs 5/5 Right side , 5/5 Left side Deep tendon reflexes : Normal Knee Jerk. Normal Ankle Jerk Vertebral body tenderness Suarez Test positive Lumbar facet Loading Test: positive Right / positive Left L4-L5, L5-S1 Range of motion of the lumbar spine Flexion 30 degrees, extension 10 degrees Straight Leg Raise test: Left/ Right positive at < 35 degrees Ermelinda test: positive right / positive left. Severe tenderness over the Sacroiliac joint on the Right / Left sides Gaenslen test: positive bilaterally Seated flexion test: positive bilaterally. Sacral spine : Severe tenderness over the Sacroiliac joint: right side / left side Range of motion: Flexion of the lumbar spine <60 degrees Range of motion: Extension of the lumbar spine <20 degrees Gaenslen's Test positive David's Test positive Ermelinda test: positive right side / left side Thigh Thrust Test Sacral Thrust Test Imaging: MRI non contrast of the cervical spine from 10/14/22 reviewed MRI non contrast of the lumbar spine from 10/14/22 reviewed Assessment/ Plan : Cervicogenic POTTER, Occipital Neuralgia, Cervical radiculopathy, Lumbar radiculopathy Recommendation of BL RFA L4-L5, L5-S1. Pt exhibited substantial pain relief w prior BL MBB L4-L5/ L5-S1 procedures. Risk, benefits of procedure discussed and patient verbalized understanding. Protocol for discontinuation/ continuation of medications lora procedure discussed. Minimal anesthesia including Fentanyl and Versed if clinically indicated. Pt is to avoid cannabis, alcohol and narcotic medications while taking short course of [place] 10/325mg #18 NR Use, side effects, adverse reactions, safe storage discussed. All questions answered. I have spent greater than 30 minutes on patient care today. Dr Rosario was available by phone for the evaluation of this patient. The time was used to review the medical records including relevant urine studies and Prescription history (MAPs), review of the available imaging, evaluation and examination of the patient, coordination of care with the medical staff and if applicable referring physicians, as well as creation of the medical record - Pain Location Occipital Non-Pharmacological Interventions: Heat, Meditation Pharmacological Interventions: Epidural PQRS Narrative: Smoking Status Former smoker Hx Alcohol Use (MH) Yes: Rare Home Medications: Ambulatory Orders Metoprolol Tartrate 25 mg PO BID 01/02/19 DULoxetine HCL [Cymbalta] 60 mg PO BID 12/04/22 Diclofenac Sodium Gel [Voltaren Gel] 4 gm TOPICAL QAM PRN 12/04/22 Erenumab-Aooe [Aimovig Autoinjector] 140 mg SQ QMONTHLY 12/04/22 Fluticasone Nasal [place] [Flonase Nasal [place]] 2 spray EA NOSTRIL DAILY PRN 12/04/22 Lidocaine 5% Patch [Lidoderm] 1 patch TOPICAL TID PRN 12/04/22 Loperamide HCl [Loperamide HCl Oral Susp] 1 tsp PO DAILY PRN 12/04/22 Losartan [Cozaar] 100 mg PO QAM 12/04/22 Ondansetron Odt [Zofran Odt] 4 mg PO Q12HR PRN 12/04/22 SUMAtriptan succinate 6 mg SQ DIRECTED PRN MDD 12MG 12/04/22 SUMAtriptan succinate [Imitrex] 100 mg PO DIRECTED PRN MDD 200MG 12/04/22 Hcl-Ease 2 tab PO BID 07/18/23 [place]-Stin 1 tab PO TID 07/18/23 Zn-Zymeforte 1 tab PO QAM 07/18/23 Iosol 9 drops PO BID 08/19/23 Naproxen Sodium [Aleve] 220 mg PO BID PRN 09/24/23 HYDROcodone/APAP 10-325MG [[place] 10-325] 1 tab PO Q4HR PRN 3 Days #18 tab 01/21/24 Controlled Substance Measures - Controlled Substance Measures Is patient prescribed a controlled substance at discharge?: Yes When asked, does pt state using other controlled substances?: Yes If prescribed controlled substance>3 days was MAPS reviewed?: Prescribed <3 Days
== END ==
LOC: PNWHC3 08:59
PROVIDERS: ATTEND Specialist
DX: M54.81 Occipital neuralgia (principal); G89.29 Other chronic pain; G44.86 Cervicogenic headache; M54.16 Radiculopathy, lumbar region; M54.12 Radiculopathy, cervical region; Z88.1 Allergy status to other antibiotic agents; Z87.891 Personal history of nicotine dependence
CPT/HCPCS: 99211

== ENCOUNTER 2024-02-12 08:07 | Day surgery (SDC) | payer OTHER ==
[2024-02-06 16:05] VITALS: BMI 29.9
[2024-02-12 08:41] VITALS: RESP 16; TEMP 98.1
[2024-02-12] MEDS: IV FLUID CONTINUATION 1,000 ML IV ONE ×2 (08:42→09:39)
[2024-02-12] MEDS: LACTATED RINGERS 1,000 ML IV SCH (08:43)
[2024-02-12] MEDS ORDERED: MIDAZOLAM 2 MG/2 ML VIAL ONE (08:57)
[2024-02-12] MEDS ORDERED: fentaNYL (PF) 50 MCG/ML 2 ML AMP ONE (08:57)
[2024-02-12] MEDS ORDERED: ROPIVACAINE 5MG/ML 20ML VIAL ONE (08:57)
--- NOTE | 2024-02-12 09:41 | P.PCN ---
Description of Procedure: Preprocedure diagnosis. 1. Lumbar spondylosis with facet joint arthropathy without myelopathy. 2. Lumbar degenerative disc disease. Procedure diagnosis. 1. Lumbar spondylosis with facet joint arthropathy without myelopathy. Space 2. Lumbar degenerative disc disease. Procedure.Bilateral radiofrequency thermocoagulation L3, L4 and L5 medial branch, with fluoroscopic guidance (fluoroscopy images are available in the radiology department) (to Denervate the facet joint at bilateral L4- 5 and L5-S1 levels) Anesthesia. Moderate sedation with intravenous Versed 2 mg and fentanyl 100 g and local infiltration with Lidocaine. Continuous pulse OX,BP,EKG and verbal communication was maintained with patient. Time. EBL minimal. Procedure indication. The patient with low back pain secondary to lumbar facet arthropathy who he had more than 50% relief of her pain with previous diagnostic lumbar medial branch block with local anesthetics.The patient was seen and identified in the preoperative area. Risks: Benefits, complications, including but not limited to risk of infection, bleeding, ALLERGIC reaction to the medica tions and no complete pain relief and alternatives were discussed with the patient, the patient admitted to proceed with the procedure and signed the consent. Procedure description/technique. Patient was taken to the OR and timeout was completed. The patient was placed in prone position on the procedure table. The lumbar area was prepped and draped in the usual sterile fashion. After injecting 5 ml of 1% Lidocaine subcutaneously,using AP and then oblique, lateral view of fluoroscopy, 18-gauge 100 mm radiofrequency cannula with a 10 mm active tip was advanced and guided by fluoroscopy at the junction of supirior articular process with RIGHT ala of the sacrum, transverse process of L4&L5. Each site then underwent positive sensory testing with 50 Hz and 0-1 V and negative motor testing at 2.5 Hz and 0-3 V with local stimulation but no radicular symptoms down the leg. Thereafter each sites underwent radiofrequency thermocoagulation at 80C for 90 seconds after injecting 1 mL of preservative- free 0.5% ropivacaine. Repeat radiofrequency ablation was done at each points after rotating the needle 180 with same setting. This same procedure was repeated twice on the LEFT side at the junction of superior articular process with ala of sacrum,transverse process of L4, L5 with the same settings after positive sensory,negative motor stimulation and infiltration of 1.0 ml 5% Ropivacaine at each site . RF needles were taken out. At the end of the procedure the skin was cleansed and Band-Aids were applied. Disposition patient tolerated the procedure well. No complication. She was placed in supine position and transferred to the recovery area in stable condition for observation and was discharged home from recovery room after meeting discharge criteria. Discharge instructions given to the patient by the staff. The patient were examined prior to discharge the patient will schedule a follow-up in the clinic in 2-4 weeks.
[2024-02-12 09:56] VITALS: BP 160/87; PULSE 68
--- NOTE | 2024-02-12 09:59 | FL ---
Fluoroscopy History: Pain 50 sec [place] .[id number] DAP dose [facility], , 02/12/2024 9:57 AM
== END 2024-02-12 10:13 | disposition home or self-care (01) ==
LOC: ORPAIN 08:07
PROVIDERS: ATTEND Pain Medicine Interventional Pain Medicine
CPT/HCPCS: 99152; 99153

== ENCOUNTER → 2024-03-03 | Outpatient (CLI) | payer OTHER ==
[2024-03-03 09:24] VITALS: BP 168/112; PULSE 80; RESP 16; TEMP 96.6
--- NOTE | 2024-03-03 16:03 | P.PAINPG ---
PQRS Measure Charge Sheet Comment: HISTORY OF PRESENT ILLNESS: A 54 yr old female presents today w severe and chronic neck pain x 10 yrs and LBP > 2 yrs secondary to cervicogenic headache, occipital neuralgia, radiculopathy, spondylosis and facet arthropathy without myelopathy for evaluation s/p BL RFA L4-L5, L5-S1. Pt states she experienced 75 % pain relief s/p procedure. Pt states pain level is provoked at 6 /10 in intensity, constant, localized in the lower lumbar sine, predominantly axial, sharp in character without shooting pain. Pain is provoked by laying supine. Pain is alleviated by PT x 6 wks which ended in Jun 2023 (lumbar), chiropractic treatments biweekly since Feb 2023 (cervical, lumbar) which she is currently in, massage therapy w acupuncture (lumbar) weekly since May 2023 which she is currently in, medications, topicals, heat, repositioning and rest. Interventional procedures include SUSANNA C6-C7 x1, R TFESI C6-C7 x2 (Jul 2023), SUSANNA L4-L5 x1 (August 2023), BL MBB L3-L5 x2, BL JAYSON x2 (Nov 2023, Dec 2023) Medications include Motrin, Aleve, Cymbalta, Tyl, [place] 7.5/325mg, BioFreeze gel, THC products REVIEW OF ORGAN SYSTEMS: CONSTITUTIONAL: No fevers or chills. No recent weight loss. NEUROLOGICAL: + numbness and tingling along the distal extremities. No seizure disorders or headaches. MUSCULOSKELETAL: + pain PSYCHIATRIC: Denies current depression or suicidal thoughts. Physical Examinations : Constitutional : Cooperative , not in acute distress . Neurologic : Cranial nerve II to XII intact. No focal neurological deficits. Psychiatric : alert & oriented x 3. Matching mood & appropriate affect. Judgment & insight intact. Musculoskeletal : Cervical Spine +BL JAYSON TTP Motor strength in the deltoid and biceps: Normal right side. Normal Left side Motor strength biceps and the wrist extensors: Normal right side . Normal left side Motor strength in the triceps muscle: Normal right side. Normal left side Deep tendon reflexes: Normal at the biceps. Normal at Brachioradialis. Normal at triceps Vertebral body tenderness to deep palpation over C6 Cervical facet loading test: positive R C6-C7 Spurling test: positive bilaterally Neck distraction test: positive bilaterally Stefani sign: positive bilaterally Lumbar spine Motor strength lower extremities ,thigh and legs 5/5 Right side , 5/5 Left side Deep tendon reflexes : Normal Knee Jerk. Normal Ankle Jerk Vertebral body tenderness Suarez Test positive Lumbar facet Loading Test: positive Right / positive Left L4-L5, L5-S1 Range of motion of the lumbar spine Flexion 30 degrees, extension 10 degrees Straight Leg Raise test: Left/ Right positive at < 35 degrees Ermelinda test: positive right / positive left. Severe tenderness over the Sacroiliac joint on the Right / Left sides Gaenslen test: positive bilaterally Seated flexion test: positive bilaterally. Sacral spine : Severe tenderness over the Sacroiliac joint: right side / left side Range of motion: Flexion of the lumbar spine <60 degrees Range of motion: Extension of the lumbar spine <20 degrees Gaenslen's Test positive David's Test positive Ermelinda test: positive right side / left side Thigh Thrust Test Sacral Thrust Test Imaging: MRI non contrast of the cervical spine from 10/14/22 reviewed MRI non contrast of the lumbar spine from 10/14/22 reviewed Assessment/ Plan : Cervicogenic POTTER, Occipital Neuralgia, Cervical radiculopathy, Lumbar radiculopathy Recommendation of PT x 6 wks M54.16. Pt is to avoid cannabis, alcohol and narcotic medications while previously on short course of [place] 10/325mg #18 NR Use, side effects, adverse reactions, safe storage discussed. All questions answered. I have spent greater than 30 minutes on patient care today. Dr Rosario was available by phone for the evaluation of this patient. The time was used to review the medical records including relevant urine studies and Prescription history (MAPs), review of the available imaging, evaluation and examination of the patient, coordination of care with the medical staff and if applicable referring physicians, as well as creation of the medical record PQRS Narrative: Smoking Status Former smoker Hx Alcohol Use (MH) Yes: Rare Home Medications: Ambulatory Orders Diclofenac Sodium Gel [Voltaren Gel] 4 gm TOPICAL QAM PRN 12/04/22 Fluticasone Nasal [place] [Flonase Nasal [place]] 2 spray EA NOSTRIL DAILY PRN 12/04/22 Lidocaine 5% Patch [Lidoderm] 1 patch TOPICAL TID PRN 12/04/22 Loperamide HCl [Loperamide HCl Oral Susp] 1 tsp PO DAILY PRN 12/04/22 Ondansetron Odt [Zofran Odt] 4 mg PO Q12HR PRN 12/04/22 SUMAtriptan succinate 6 mg SQ DIRECTED PRN MDD 12MG 12/04/22 SUMAtriptan succinate [Imitrex] 100 mg PO DIRECTED PRN MDD 200MG 12/04/22 Hcl-Ease 2 tab PO BID 07/18/23 [place]-Stin 1 tab PO TID 07/18/23 Zn-Zymeforte 1 tab PO QAM 07/18/23 Iosol 9 drops PO BID 08/19/23 Naproxen Sodium [Aleve] 220 mg PO BID PRN 09/24/23 HYDROcodone/APAP 10-325MG [[place] 10-325] 1 tab PO Q4HR PRN 3 Days #18 tab 01/21/24 Controlled Substance Measures - Controlled Substance Measures Is patient prescribed a controlled substance at discharge?: No
== END ==
LOC: PNWHC3 09:10
PROVIDERS: ATTEND Specialist
DX: M47.26 Other spondylosis with radiculopathy, lumbar region (principal); G44.86 Cervicogenic headache; M54.81 Occipital neuralgia; Z87.891 Personal history of nicotine dependence; Z88.8 Allergy status to other drugs, medicaments and biological substances
CPT/HCPCS: 99211